=== PATIENT | female | born 1950 | race Caucasian/White ===

== ENCOUNTER 2016-07-29 14:23 | Inpatient (IN) | payer BC, OTHER ==
[~2016-07-29] VITALS: Ht 165.1 cm; Wt 55.7 kg
[2016-07-29] VITALS (8 sets, daily range): BP systolic 104–138; BP diastolic 58–102; PULSE 116–129; RESP 15–22; TEMP 97.6–98; O2SAT 88–98
--- NOTE | 2016-07-29 14:39 | PD ---
HPI Chief Complaint: Fall Time Seen by Provider: 14:31 Travel History International Travel<30 days: No Contact w/Intl Traveler<30days: No Traveled to known affect area: No History of Present Illness HPI This is a 66-year-old female with a history of cancer who presents to the emergency department having been moved by 2 friends when they felt a pop in her right leg and she sustained severe pain, constant, worse with moving with no associated numbness or weakness. Patient denies any other injuries. Patient was recently diagnosed with lung cancer that had spread to her bone and brain 3 weeks ago. She has an appointment with both Dr. Weber and Dr. Tran but she' s not met with them yet. She is not on any oxygen at home. [facility] Past Medical History Cardiovascular Problems: Yes Social History Tobacco Use: Yes Allergies-Medications (Allergen,Severity, Reaction): Coded Allergies: Sulfa (Verified Allergy, Unknown, 07/29/16) Reported Meds & Prescriptions Reported Meds & Active Scripts Active Reported Albuterol Neb (Albuterol Sulfate) 2.5 Mg/3 Ml Neb 2.5 Mg NEB Prednisone (21) 10 mg tab Dose Pack (Prednisone) 10 Mg Pack 10 Mg PO DIRECTED Potassium Chloride ER (Potassium Chloride) 10 Meq Cap 10 Meq PO BID Megestrol (Megestrol Acetate) 40 Mg Tab 40 Mg PO QID Phenergan (Promethazine HCl) 25 Mg Tab 25 Mg PO QID Levofloxacin 500 Mg Tab 500 Mg PO DAILY Hydromorphone (Hydromorphone HCl) 4 Mg Tab 4 Mg PO Q4H PRN Furosemide 20 Mg Tab 20 Mg PO DAILY Review of Systems Except as stated in HPI: all other systems reviewed are Neg Physical Exam Narrative GENERAL: Cachectic SKIN: Dry with skin tenting HEAD: Atraumatic. Normocephalic. EYES: Pupils equal and round. No injection or drainage. ENT: Dry mucous membranes NECK: Trachea midline. CARDIOVASCULAR: Tachycardic. No murmur appreciated. 2+ bilateral DP pulses with normal capillary refill. RESPIRATORY: Coarse breath sounds bilaterally with some expiratory wheezing. Tachypneic with increased work of breathing. GASTROINTESTINAL: Abdomen soft, non-tender, nondistended. MUSCULOSKELETAL: Gross deformity of the right lower extremity with deformity of the femur immediately distal to the hip NEUROLOGICAL: Awake and alert. No obvious cranial nerve deficits. Moving all extremities. Data Data Last Documented VS Vital Signs Date Time Temp Pulse Resp B/P Pulse Ox O2 Delivery O2 Flow Rate FiO2 07/29/16 16:58 98.0 119 16 116/62 98 Nasal Cannula 4 Orders Complete Blood Count With Diff (07/29/16 14:35) Comprehensive Metabolic Panel (07/29/16 14:35) B-Type Natriuretic Peptide (07/29/16 14:35) Act Partial Throm Time (Ptt) (07/29/16 14:35) Prothrombin Time / Inr (Pt) (07/29/16 14:35) Troponin I (07/29/16 14:35) Iv Access Insert/Monitor (07/29/16 14:35) Ecg Monitoring (07/29/16 14:35) Oximetry (07/29/16 14:35) Oxygen Administration (07/29/16 14:35) Chest, Single Ap (07/29/16 14:35) Sodium Chloride 0.9% Flush (Ns Flush) (07/29/16 14:45) Albuterol-Ipratropium Neb (Duoneb Neb) (07/29/16 14:45) Femur (Ap & Lat/2vws) (07/29/16 ) Hip, Uni(Ap&Lat) Wo Ap Pelvis (07/29/16 ) Hydromorphone Pf Inj (Dilaudid Pf Inj) (07/29/16 14:45) Arterial Blood Gas (Abg) (07/29/16 ) Consult Orthopedic (07/29/16 ) Traction (07/29/16 16:10) Methylprednisolone So Succ Inj (Solumedr (07/29/16 16:15) Blood Culture (07/29/16 16:19) Cefepime Inj (Maxipime Inj) (07/29/16 16:30) Azithromycin Inj (Zithromax Inj) (07/29/16 16:30) Diet Regular Basic (07/29/16 Dinner) Sodium Chlorid 0.9% 500 Ml Inj (Ns 500 M (07/29/16 16:30) Ct Thorax/ Chest Wo Iv Contras (07/29/16 ) Admit Order (Ed Use Only) (07/29/16 17:00) Labs Laboratory Tests Test 07/29/16 07/29/16 14:55 16:15 White Blood Count 11.1 TH/MM3 Red Blood Count 4.15 MIL/MM3 Hemoglobin 12.7 GM/DL Hematocrit 38.9 % Mean Corpuscular Volume 93.6 FL Mean Corpuscular Hemoglobin 30.6 PG Mean Corpuscular Hemoglobin 32.7 % Concent Red Cell Distribution Width 17.9 % Platelet Count 206 TH/MM3 Mean Platelet Volume 10.1 FL Neutrophils (%) (Auto) 89.0 % Lymphocytes (%) (Auto) 5.9 % Monocytes (%) (Auto) 4.7 % Eosinophils (%) (Auto) 0.2 % Basophils (%) (Auto) 0.2 % Neutrophils # (Auto) 9.9 TH/MM3 Lymphocytes # (Auto) 0.6 TH/MM3 Monocytes # (Auto) 0.5 TH/MM3 Eosinophils # (Auto) 0.0 TH/MM3 Basophils # (Auto) 0.0 TH/MM3 CBC Comment AUTO DIFF Differential Total Cells 100 Counted Neutrophils % (Manual) 66 % Band Neutrophils % 17 % Lymphocytes % 5 % Monocytes % 8 % Neutrophils # (Manual) 9.7 TH/MM3 Metamyelocytes 3 % Myelocytes 1 % Differential Comment FINAL DIFF MANUAL Toxic Vacuolation PRESENT Platelet Estimate NORMAL Platelet Morphology Comment NORMAL Sodium Level 140 MEQ/L Potassium Level 5.3 MEQ/L Chloride Level 104 MEQ/L Carbon Dioxide Level 23.4 MEQ/L Anion Gap 13 MEQ/L Blood Urea Nitrogen 48 MG/DL Creatinine 1.77 MG/DL Estimat Glomerular Filtration 29 ML/MIN Rate Random Glucose 122 MG/DL Calcium Level 11.0 MG/DL Total Bilirubin 0.5 MG/DL Aspartate Amino Transf 45 U/L (AST/SGOT) Alanine Aminotransferase 17 U/L (ALT/SGPT) Alkaline Phosphatase 132 U/L Troponin I LESS THAN 0.02 NG/ML B-Type Natriuretic Peptide 102 PG/ML Total Protein 8.0 GM/DL Albumin 3.1 GM/DL Prothrombin Time 14.4 SEC Prothromb Time International 1.3 RATIO Ratio Activated Partial 25.2 SEC Thromboplast Time MDM Medical Decision Making Medical Screen Exam Complete: Yes Emergency Medical Condition: Yes Interpretation(s) Mild leukocytosis with left shift and 17% bandemia Mild hyperkalemia Creatinine is 1.7 BNP is indeterminate Troponin is normal Calcium is 11 ABG: Mild metabolic acidosis X-ray: Proximal shaft femur fracture Chest x-ray: Left basilar airspace disease with small left effusion Differential Diagnosis Pulmonary embolism, pneumonia, lung cancer, pleural effusion Narrative Course This is a 66-year-old female who was recently diagnosed with metastatic cancer. She's not yet had oncology follow-up. Today she came in to the emergency department with severe pain in her right lower extremity. X-rays obtained and she has a mid shaft femur fracture. Patient was tachycardic and hypoxic on arrival. Labs are obtained which demonstrate a bandemia and patient has evidence of airspace disease in the left lower lung. She was covered for healthcare acquired pneumonia with cefepime and azithromycin and cultures were obtained. She was given IV hydration. I spoke to Dr. Soria regarding the patient's fracture. Given her creatinine she's not a candidate for a CT pulmonary angiogram and VQ scan would likely be of poor quality in this patient with lung cancer. Patient was admitted to the hospitalist service for further management. Physician Communication Physician Communication Discussed with Dr. Soria and Dr. Mccarty Diagnosis Primary Impression: Femoral shaft fracture Qualified Code: S72.391A - Other closed fracture of shaft of right femur, initial encounter Admitting Information Admitting Physician Requests: Admit Renita Antoine MD Jul 29, 2016 14:39
[2016-07-29] MEDS ORDERED: LEVO500T3 PO (14:44)
[2016-07-29] MEDS ORDERED: MEGE40TA PO (14:44)
[2016-07-29] MEDS ORDERED: HYDR4TAB PO (14:44)
[2016-07-29] MEDS ORDERED: PROM25TA5 PO (14:44)
[2016-07-29] MEDS ORDERED: FURO20TA PO (14:44)
[2016-07-29] MEDS ORDERED: POTA10CA PO (14:44)
[2016-07-29] MEDS ORDERED: SODIUM CHLORIDE 0.9% FLUSH 5 ML FLUSH IVF PRN ×2 (14:45→17:30)
[2016-07-29] MEDS ORDERED: HYDROmorphone HCL PF 1 MG/ML VIAL IV PUSH ONE (14:45)
[2016-07-29] MEDS ORDERED: PRED10PA PO (14:46)
[2016-07-29] MEDS ORDERED: ALBU0.08 NEB (14:46)
[2016-07-29] MEDS: RESP: ALBUTEROL 2.5 MG/IPRATROPIUM 0.5 MG NEB (SCH) INH ×2 (15:00→16:12)
[2016-07-29 15:27] LABS: AUTOMATED NEUTROPHIL # 9.9 TH/MM3 (1.8-7.7); BASOPHIL % 0.2 % (0.0-2.0); EOSINOPHIL % 0.2 % (0.0-4.0); HEMATOCRIT 38.9 % (35.0-46.0); HEMO FLAGS AUTO DIFF; LYMPH % 5.9 % (9.0-44.0); LYMPHOCYTE # 0.6 TH/MM3 (1.0-4.8); MEAN CELL VOLUME 93.6 FL (80.0-100.0); MEAN CORPUSCULAR HEMOGLOBIN 30.6 PG (27.0-34.0); MEAN CORPUSCULAR HGB CONC 32.7 % (32.0-36.0); MONO % 4.7 % (0.0-8.0); PLATELET COUNT 206 TH/MM3 (150-450); RED BLOOD COUNT 4.15 MIL/MM3 (4.00-5.30); RED CELL DISTRIBUTION WIDTH 17.9 % (11.6-17.2); WHITE BLOOD COUNT 11.1 TH/MM3 (4.0-11.0)
[2016-07-29 15:41] LABS: ALKALINE PHOSPHATASE 132 U/L (45-117); TOTAL BILIRUBIN ADULT 0.5 MG/DL (0.2-1.0)
[2016-07-29 15:48] LABS: ALT (GPT) 17 U/L (10-53); ANION GAP 13 MEQ/L (5-15); AST (GOT) 45 U/L (15-37); BICARBONATE 23.4 MEQ/L (21.0-32.0); BLOOD UREA NITROGEN 48 MG/DL (7-18); CHLORIDE 104 MEQ/L (98-107); GLOMERULAR FILTRATION RATE 29 ML/MIN (>89); SODIUM (NA) 140 MEQ/L (136-145)
[2016-07-29 15:49] LABS: POTASSIUM 5.3 MEQ/L (3.5-5.1)
[2016-07-29 15:59] LABS: BANDS 17 % (0-6); METAMYELOCYTES 3 % (0-1); MYELOCYTES 1 % (0-0); NEUTROPHIL # MANUAL DIFF 9.7 TH/MM3 (1.8-7.7); POLYS (SEG NEUTROPHILS) 66 % (16-70); WBC DIFF SAMPLE 100
[2016-07-29 16:00] LABS: PLATELET ESTIMATE SMEAR NORMAL (NORMAL); PLATELET MORPHOLOGY NORMAL (NORMAL); SCAN/DIFF FINAL DIFF MANUAL; TOXIC VACUOLATION PRESENT (NONE SEEN)
[2016-07-29] MEDS ORDERED: methylPREDNISolone SOD SUCC 125 MG/2 ML VIAL IV PUSH ONE (16:15)
[2016-07-29] MEDS ORDERED: AZITHROMYCIN INJ 500 MG in SODIUM CHLOR 0.9% 250 ML INJ 250 ML IV ONE (16:30)
[2016-07-29] MEDS ORDERED: CEFEPIME INJ 2,000 MG in SODIUM CHLORIDE 0.9% INJ 100 ML IV ONE (16:30)
[2016-07-29] MEDS ORDERED: SODIUM CHLORID 0.9% 500 ML INJ 500 ML IV ONE (16:30)
--- NOTE | 2016-07-29 16:30 | RADRPT ---
EXAM DATE/TIME: 07/29/2016 15:32 [facility] COMPARISON: No previous studies available for comparison. INDICATIONS : Shortness of breath. MEDICAL HISTORY : None. SURGICAL HISTORY : None. ENCOUNTER: Initial ACUITY: 1 day PAIN SCORE: 0/10 LOCATION: Bilateral chest FINDINGS: A single view of the chest demonstrates mild cardiomegaly. Left basilar consolidation and small left effusion. Minimal patchy airspace disease right lung. [id number] in superior vena cava. Atheroscle rotic and tortuous aorta. Multiple compression deformities in the thoracic spine.. CONCLUSION: 1. Left basilar airspace disease and small left effusion. Cardiomegaly. Rangel Haji MD on July 29, 2016 at 16:27 Board Certified Radiologist. This report was verified electronically.
--- NOTE | 2016-07-29 16:37 | RADRPT ---
EXAM DATE/TIME: 07/29/2016 15:24 [facility] COMPARISON: No previous studies available for comparison. INDICATIONS : Pain after fall. MEDICAL HISTORY : None. SURGICAL HISTORY : None. ENCOUNTER: Initial ACUITY: 1 day PAIN SCORE: 10/10 LOCATION: Right femur. FINDINGS: A two view examination of the right hip was performed. There is a fracture through the proximal shaft of the right femur with apex lateral angulation. This could represent a pathologic fracture. Questio nable lucency noted around the fracture site. Bone scan may be helpful to assess for other lesions de pending on intraoperative findings. CONCLUSION: Fracture proximal shaft right femur with apex lateral angulation. Questionable pathologic fracture. B one scan could be performed for further evaluation. Rangel Haji MD on July 29, 2016 at 16:32 Board Certified Radiologist. This report was verified electronically.
[2016-07-29 16:42] LABS: APTT (PATIENT) 25.2 SEC (24.3-30.1); INTERNATIONAL NORMALIZED RATIO 1.3 RATIO; PROTHROMBIN TIME - PATIENT 14.4 SEC (9.8-11.6)
[2016-07-29] MEDS: SODIUM CHLOR 0.9% 1000 ML INJ 1,000 ML IV SCH (17:25)
[2016-07-29] MEDS ORDERED: ACETAMINOPHEN/HYDROcodone 325 MG/5 MG TAB PO PRN ×2 (17:30)
[2016-07-29] MEDS ORDERED: ONDANSETRON HCL 4 MG/2 ML VIAL IVP PRN (17:30)
[2016-07-29] MEDS ORDERED: ACETAMINOPHEN 325 MG TAB PO PRN (17:30)
[2016-07-29 17:33] LABS: BLOOD GAS BASE EXCESS -4.9 mmol/L (-2-2); BLOOD GAS CARBOXYHEMOGLOBIN 2.2 % (0-4); BLOOD GAS HCO3 20 mmol/L (22-26); BLOOD GAS METHEMOGLOBIN 1.4 % (0-2); BLOOD GAS O2 HGB SATURATION 93 % (90-100); BLOOD GAS PCO2 40 mmHg (38-42); BLOOD GAS PO2 89 mmHG (61-120); BLOOD GAS TOTAL HGB 9.9 G/DL (12.0-16.0); TEMP CORR TO 98.6
[2016-07-29 17:34] LABS: CRITICAL VALUE NO; DRAW SITE RT RADIAL; LITER FLOW 4 L/M; NUMBER OF ARTERIAL PUNCTURES 1; OXYGEN DEVICE NASAL CANNULA; STAT YES; ULNAR PULSE PRESENT
--- NOTE | 2016-07-29 17:37 | RADRPT ---
EXAM DATE/TIME: 07/29/2016 15:25 [facility] COMPARISON: No previous studies available for comparison. INDICATIONS : Pain after fall. MEDICAL HISTORY : None. SURGICAL HISTORY : None. ENCOUNTER: Initial ACUITY: 1 day PAIN SCORE: 10/10 LOCATION: Right femur. FINDINGS: Two view examination of the right femur demonstrates fracture proximal shaft with lateral angulation. There does appear to be some underlying bony lytic changes characteristic of a pathologic fracture.. CONCLUSION: 1. Pathologic fracture of proximal humeral shaft with lateral angulation. Rangel Haji MD on July 29, 2016 at 17:34 Board Certified Radiologist. This report was verified electronically.
[2016-07-29] MEDS ORDERED: RESP: ALBUTEROL 1.25 MG/3 ML NEB (PRN) NEB (17:45)
--- NOTE | 2016-07-29 17:55 | HHI.HP ---
[facility] Service [facility] Primary Care Physician Ana Botello Admission Diagnosis hypoxia, femur fracture Diagnoses: Chief Complaint: Right leg pain Travel History International Travel<30 Days: No Contact w/Intl Traveler <30 Da: No Traveled to Known Affected Are: No History of Present Illness 66-year-old female with a past medical history of recently diagnosed lung cancer who presented with acute right leg pain today. The patient is seen with her friend/caregiver's at bedside. The patient is very hard of hearing and extremely hoarse, cannot speak much to give a lot of history. She is oriented to person, states it is June 2016. Reportedly her friends were helping her get back in bed today, she turned, heard a pop, and had immediate severe pain in her right thigh with inability to bear weight. Orthopedics was consulted from the ED for right femur fracture. She was recently diagnosed with bronchitis 2 days ago at an ED in the [place]. She has been having cough with productive yellow sputum. She is prescribed Levaquin and steroid taper pack. She denies any chest pain or shortness of breath at this time. She has been having some dizziness, lightheadedness, nausea, vomiting. She is recently diagnosed with lung cancer. She is seen radiation oncology, Dr. Tran, planning to start on radiation on Sunday. She is also planning to see her medical oncologist for the first time, Dr. Zhu, on Sunday. Review of Systems Other 10 point review of systems performed and was negative except as stated in history of present illness Past Family Social History Past Medical History Lung cancer Past Surgical History Right chest port placement Reported Medications Albuterol Neb (Albuterol Sulfate) 2.5 Mg/3 Ml Neb 2.5 Mg NEB Prednisone (21) 10 mg tab Dose Pack (Prednisone) 10 Mg Pack 10 Mg PO DIRECTED Potassium Chloride ER (Potassium Chloride) 10 Meq Cap 10 Meq PO BID Megestrol (Megestrol Acetate) 40 Mg Tab 40 Mg PO QID Phenergan (Promethazine HCl) 25 Mg Tab 25 Mg PO QID Levofloxacin 500 Mg Tab 500 Mg PO DAILY Hydromorphone (Hydromorphone HCl) 4 Mg Tab 4 Mg PO Q4H PRN Furosemide 20 Mg Tab 20 Mg PO DAILY Allergies: Coded Allergies: Sulfa (Verified Allergy, Unknown, 07/29/16) Active Ordered Medications Current Medications Medications (Trade) Dose Ordered Sig/Kenia Route Start Time Stop Time Status Last Admin IV Flush 2 ml 2 ml UNSCH PRN IVF 07/29/16 14:45 (NS 1000 ml Inj) 1,000 ml @ 75 mls/hr [id number] IV 07/29/16 17:25 (NS Flush) 2 ml UNSCH PRN IVF 07/29/16 17:30 (NS Flush) 2 ml BID IVF 07/29/16 21:00 ([place] 5-325 Mg) 1 tab Q4H PRN PO 07/29/16 17:30 ([place] 5-325 Mg) 2 tab Q4H PRN PO 07/29/16 17:30 (Morphine Inj) 5 mg Q2H PRN IV PUSH 07/29/16 17:30 (Zofran Inj) 4 mg Q6H PRN IVP 07/29/16 17:30 (Tylenol) 650 mg Q4H PRN PO 07/29/16 17:30 (Colace) 100 mg BID PO 07/29/16 21:00 Magnesium Hydroxide 30 ml 30 ml Q6H PRN PO 07/29/16 17:30 Ceftriaxone Sodium 1000 mg/ Sodium Chloride 100 ml @ 200 mls/hr DAILY@2000 IV 07/29/16 18:00 Azithromycin 500 mg/Sodium Chloride 250 ml @ 250 mls/hr DAILY@18 IV 07/29/16 19:00 (Heparin-D5W Inj) 250 ml @ 0 mls/hr TITRATE IV 07/29/16 18:00 Family History Father had cancer Social History Former tobacco use Denies alcohol use No relatives, relies on friends to get care Physical Exam Vital Signs Vital Signs Date Time Temp Pulse Resp B/P Pulse Ox O2 Delivery O2 Flow Rate FiO2 07/29/16 17:03 Nasal Cannula 4 07/29/16 16:58 98.0 119 16 116/62 98 Nasal Cannula 4 07/29/16 16:13 97 Nasal Cannula 3.00 07/29/16 15:03 128 20 114/65 98 Nasal Cannula 4 07/29/16 15:01 98 Nasal Cannula 4 07/29/16 14:36 134 22 94 Nasal Cannula 2 07/29/16 14:36 94 Nasal Cannula 4 07/29/16 14:36 94 Nasal Cannula 2 07/29/16 14:33 97.6 129 22 138/102 88 Physical Exam GENERAL: Well-developed cachectic. In [id number] acute distress. Hard of hearing and hoarse voice. SKIN: Warm and dry. No lesions noted. HEENT: Normocephalic. Pupils equal and round. Mucous membranes pink and moist. JVD noted. CARDIOVASCULAR: Tachycardic rate and regular rhythm. No murmur appreciated. RESPIRATORY: Mild use of accessory muscles. Coarse basilar crackles with occasional wheezing. GASTROINTESTINAL: Abdomen soft, non-tender, nondistended. Bowel sounds x4. MUSCULOSKELETAL: Right thigh with obvious deformity, right lower leg shortened and internally rotated. Trace edema NEUROLOGICAL: Awake and alert, but appears sleepy. No focal neurological deficits. Moves upper and lower extremities spontaneously. Normal speech. PSYCHIATRIC: Appropriate mood and affect; insight and judgment fair to normal. Laboratory Laboratory Tests Test 07/29/16 07/29/16 07/29/16 14:55 16:15 17:22 White Blood Count 11.1 Red Blood Count 4.15 Hemoglobin 12.7 Hematocrit 38.9 Mean Corpuscular Volume 93.6 Mean Corpuscular Hemoglobin 30.6 Mean Corpuscular Hemoglobin 32.7 Concent Red Cell Distribution Width 17.9 Platelet Count 206 Mean Platelet Volume 10.1 Neutrophils (%) (Auto) 89.0 Lymphocytes (%) (Auto) 5.9 Monocytes (%) (Auto) 4.7 Eosinophils (%) (Auto) 0.2 Basophils (%) (Auto) 0.2 Neutrophils # (Auto) 9.9 Lymphocytes # (Auto) 0.6 Monocytes # (Auto) 0.5 Eosinophils # (Auto) 0.0 Basophils # (Auto) 0.0 CBC Comment AUTO DIFF Differential Total Cells 100 Counted Neutrophils % (Manual) 66 Band Neutrophils % 17 Lymphocytes % 5 Monocytes % 8 Neutrophils # (Manual) 9.7 Metamyelocytes 3 Myelocytes 1 Differential Comment FINAL DIFF MANUAL Toxic Vacuolation PRESENT Platelet Estimate NORMAL Platelet Morphology Comment NORMAL Sodium Level 140 Potassium Level 5.3 Chloride Level 104 Carbon Dioxide Level 23.4 Anion Gap 13 Blood Urea Nitrogen 48 Creatinine 1.77 Estimat Glomerular Filtration 29 Rate Random Glucose 122 Calcium Level 11.0 Total Bilirubin 0.5 Aspartate Amino Transf 45 (AST/SGOT) Alanine Aminotransferase 17 (ALT/SGPT) Alkaline Phosphatase 132 Troponin I LESS THAN 0.02 B-Type Natriuretic Peptide 102 Total Protein 8.0 Albumin 3.1 Prothrombin Time 14.4 Prothromb Time International 1.3 Ratio Activated Partial 25.2 Thromboplast Time Blood Gas Puncture Site RT RADIAL Blood Gas Patient Temperature 98.6 Blood Gas HCO3 20 Blood Gas Base Excess -4.9 Blood Gas Oxygen Saturation 93 Arterial Blood pH 7.32 Arterial Blood Partial 40 Pressure CO2 Arterial Blood Partial 89 Pressure O2 Arterial Blood Oxygen Content 13.0 Arterial Blood 2.2 Carboxyhemoglobin Arterial Blood Methemoglobin 1.4 Blood Gas Hemoglobin 9.9 Oxygen Delivery Device NASAL CANNULA Blood Gas Liter Flow 4 Date/Time Procedure Status Source Growth 07/29/16 16:35 Aerobic Blood Culture Received Blood Peripheral Pending 07/29/16 16:35 Anaerobic Blood Culture Received Blood Peripheral Pending Result Diagram: 07/29/16 1455 07/29/16 1455 Imaging Last Impressions Chest X-Ray 07/29/16 1435 Signed Impressions: Service Date/Time: Friday, July 29, 2016 15:32 - CONCLUSION: 1. Left basilar airspace disease and small left effusion. Cardiomegaly. Rangel Haji MD Hip X-Ray 07/29/16 0000 Signed Impressions: Service Date/Time: Friday, July 29, 2016 15:24 - CONCLUSION: Fracture proximal shaft right femur with apex lateral angulation. Questionable pathologic fracture. Bone scan could be performed for further evaluation. Rangel Haji MD Femur X-Ray 07/29/16 0000 Signed Impressions: Service Date/Time: Friday, July 29, 2016 15:25 - CONCLUSION: 1. Pathologic fracture of proximal humeral shaft with lateral angulation. Rangel Haji MD Assessment and Plan Assessment and Plan 66-year-old female with a past medical history of recently diagnosed lung cancer who presented with acute right leg pain Right upper mid shaft femur fracture: Hip and femur x-rays personally reviewed, fracture possibly pathologic. Orthopedics was consulted from the ED. pt wants to proceed with surgery , Higher risk for surgery with respiratory status as below, would recommend pulmonary clearance prior to surgery. Pain control with oral and intravenous narcotics as needed. Acute respiratory failure , hypoxia r/o pneumonia vs Embolism : With history of cancer and long bone fracture she is at high risk for embolic is him, Oxygen saturation 90s on 4 L O2. ABG reviewed. Chest x-ray shows left basilar airspace disease and small left effusion. Chest CT ordered in the ED pending. Was on oral Levaquin 2 days as outpatient, continue IV antibiotics with azithromycin and ceftriaxone. Scheduled as needed nebs. Supplemental oxygen as needed. Consult pulmonology. Solu-Medrol iv Possible PE: EKG reviewed and shows SVT. Hypoxia. Patient is high risk due to malignancy and femur fracture. Unable to perform CTA with elevated creatinine. Dr. Mccarty d/w Dr. Zhu, recommended checking VQ scan, and would only fully anticoagulate for high probability VQ scan, and consult pulmonary to assist lung function prior to clear for surgery Acute kidney injury possibly on underlying CKD, : Creatinine 1.77, no previous labs for comparison. IVF and follow-up BMP. Lung cancer: Consult patient's oncologist, Dr. Zhu. Disposition: close monitoring in ICU for now. Written by Xander Wolfe, acting as scribe for Dr. Mccarty on 07/29/16 at 17:32. Discussed Condition With Patient with friends at bedside, ED RN, Dr. Antoine, Dr. Audra Wolfe,Xander MORRIS Jul 29, 2016 17:55 Juliana Mccarty MD Jul 29, 2016 18:15
[2016-07-29] MEDS: cefTRIAXone INJ 1,000 MG in SODIUM CHLORIDE 0.9% INJ 100 ML IV SCH ×2 (18:00→20:35)
[2016-07-29] MEDS ORDERED: HEPARIN-D5W INJ 250 ML IV SCH (18:00)
[2016-07-29] MEDS: AZITHROMYCIN INJ 500 MG in SODIUM CHLOR 0.9% 250 ML INJ 250 ML IV SCH (18:03)
--- NOTE | 2016-07-29 18:18 | RADRPT ---
EXAM DATE/TIME: 07/29/2016 17:34 [facility] COMPARISON: No previous studies available for comparison. INDICATIONS : Shortness of breath; possible mass. RADIATION DOSE: 8.44 CTDIvol (mGy) MEDICAL HISTORY : Carcinoma, lung. Hypertension. Cardiovascular disease SURGICAL HISTORY : Appendectomy. port in right chest ENCOUNTER: Initial ACUITY: 1 day PAIN SCALE: 6/10 LOCATION: chest TECHNIQUE: Volumetric scanning of the chest was performed. Using automated exposure control and adjustment of t he mA and/or kV according to patient size, radiation dose was kept as low as reasonably achievable to obtain optimal diagnostic quality images. FINDINGS: There is dense consolidation at the left lung base with air bronchograms most characteristic of a pne umonia or aspiration. There is also some subsegmental airspace disease in the lingula, right middle l obe and right lower lobe. Focal consolidation also present in anterior segment left upper lobe. There is some mild mediastinal adenopathy with a subcarinal node measuring up to 1.7cm. There is a small left-sided pleural effusion. No significant right effusion. Pleural calcifications a re present on the right. Small pericardial effusion. No acute findings in the upper abdomen. CONCLUSION: 1. Multifocal airspace consolidation the lungs most notable in the left lower lobe and anterior segme nt left upper lobe loss and subsegmental airspace disease in the other lobes of the lung. There is an associated small left effusion and small pericardial effusion. Findings are most characteristic of p neumonia or aspiration. There is also mild emphysema and mild mediastinal adenopathy. Right Infuse-a- Port tip in superior vena cava. 2. Moderate compression deformity in the lower thoracic spine, probably old. Rangel Haji MD on July 29, 2016 at 18:12 Board Certified Radiologist. This report was verified electronically.
--- NOTE | 2016-07-29 20:13 | RADRPT ---
EXAM DATE/TIME: 07/29/2016 19:40 [facility] COMPARISON: No previous studies available for comparison. INDICATIONS : Hypoxia and dyspnea. DOSE: 8.5 mCi Tc99m MAA IV 1.2 mCi Tc99m DTPA aerosol MEDICAL HISTORY : Hypertension. SURGICAL HISTORY : Appendectomy. ENCOUNTER: Initial ACUITY: 2 days PAIN SCALE: 0/10 LOCATION: chest TECHNIQUE: Following five minutes of tidal breathing of DTPA aerosol, planar images of the lungs were performed in eight projections. The patient was then injected with MAA, and eight-view perfusion scan was perf ormed. FINDINGS: There is a heterogeneous pattern of aerosol delivery to the periphery of both lungs. Left hemidiaphra gm is elevated. The perfusion lung scan demonstrates a homogenous pattern of uptake in both lungs except for elevatio n of left hemidiaphragm. No segmental or subsegmental defects are seen. CONCLUSION: 1. Low probability for pulmonary bolus. Rangel Haji MD on July 29, 2016 at 20:10 Board Certified Radiologist. This report was verified electronically.
[2016-07-29] MEDS: RESP: ALBUTEROL 2.5 MG/IPRATROPIUM 0.5 MG NEB (SCH) NEB (20:52)
[2016-07-29] MEDS ORDERED: PAMIDRONATE INJ 60 MG in SODIUM CHLORID 0.9% 500 ML INJ 500 ML IV ONE (21:00)
[2016-07-29] MEDS: SODIUM CHLORIDE 0.9% FLUSH 5 ML FLUSH IVF SCH (21:00)
[2016-07-29] MEDS: MORPHINE SULFATE 8 MG/ML INJ IV PUSH PRN (21:01)
--- NOTE | 2016-07-29 21:31 | MB ---
cc: FLOYD CHAVARRIA M.D. DATE OF CONSULTATION 07/29/16 REASON FOR CONSULTATION Consult requested by Dr. Mccarty for evaluation of lung cancer. HISTORY OF PRESENT ILLNESS Karo Hensley is a 66-year unfortunate white female. I saw her for the first time about a month ago when she was admitted to [facility] with swelling of both lower legs. She was found to have bilateral lower legs DVT and underwent IVC filter placement. The CT of the chest, abdomen and pelvis showed left upper lobe lung mass with left supraclavicular lymphadenopathy and lesion in the liver highly suspicious for primary lung cancer. She also had a CAT scan of the brain which showed two masses. The patient underwent biopsy of the left supraclavicular mass and the pathology report showed non-small cell lung cancer adenocarcinoma. The patient was scheduled to start radiation therapy with Dr. Tran sometime next week. She was also scheduled to start chemotherapy. She was referred to Dr. Justin for the [id number]. The patient had a port put in on July 10. Due to the insurance, the patient was unable to come see us before the beginning of the next month. She stated that she had a problem with the insurance and she got the new temporary card just beginning of this month. She had an appointment with Dr. Tran next week Sunday for the radiation treatment. The patient went to [facility] two days ago complaining of shortness of breath. She had a CT angiogram of the chest which did not show any pulmonary embolism. However, it showed that she has worsening of the left pleural effusion and also worsening of the lung mass and mediastinal lymphadenopathy. The patient was given breathing treatment and she was discharged to home. The patient lives by herself. She has two friends who are her caregiver, noted a pop in her right leg today. They called paramedics. The paramedics brought her to [facility] emergency room instead of the [facility]. In the emergency room, the patient had a x-ray which showed pathological fracture of the proximal femoral shaft with angulation. There is underlying bony lytic changes noted as well. She has a CT of the chest which shows multifocal air space consolidation. The lungs most notable in the left lower lobe and anterior segment of the left upper lobe loss and sub segmental airspace disease. There is associated small left pleural effusion and small pericardial effusion. Findings are most consistent with pneumonia or aspiration. There is also mild emphysema and mild mediastinal lymphadenopathy noted. There is a moderate compression deformity noted in the lower thoracic space. The patient had a VQ scan which is low probability for pulmonary embolism. Orthopedic has been consulted. Await their input. The patient has hypoxia when she came into the emergency room. Her O2 saturation was 88%. She was placed on nasal cannula and her O2 saturation has improved to 94%. Her breathing has also improved according to the friends. The patient's appetite is poor. She is losing weight. I have been asked to see the patient for further evaluation. The patient just came back from VQ scan and result is low probability for PE. PAST MEDICAL HISTORY 1. COPD, 2. Chronic back pain 3. Hypercholesterolemia. 4. Recently diagnosed with DVT and had IVC filter. 5. She was also recently diagnosed with non-small cell lung cancer stage IV. PAST SURGICAL HISTORY 1. Appendectomy 2. Breast biopsy 3. Right supraclavicular lymph node biopsy 4. [id number] placement. ALLERGIES None. MEDICATIONS Please see EMR FAMILY HISTORY The patient does not have any siblings or any children. SOCIAL HISTORY The patient is single, never . She lives by herself. However, she has two friends who are her caregivers. The patient does not drink alcohol. She used to smoke cigarettes 1 1/2 packs a day for many years, quit about 10 years ago. PHYSICAL EXAMINATION GENERAL: A well-developed, cachectic-appearing white female in no apparent distress. VITAL SIGNS: Temperature 98, heart rate is 119, blood pressure 116/62. HEENT: Bitemporal wasting noted. EOMI, anicteric. Oral mucosa is very dry. NECK: Left supraclavicular lymphadenopathy noted. LUNGS: Decreased breath sounds with left-sided scattered wheezing. HEART: Tachycardia with no murmur. ABDOMEN: Soft, nontender. EXTREMITIES: No pedal edema. NEUROLOGIC: Awake, alert, oriented times threes SKIN: No significant lesions are noted. ASSESSMENT 1. Pathological fracture of the right femur. 2. Recently diagnosed non-small cell lung cancer adenocarcinoma stage IV with brain metastasis. The patient has not had any treatment as yet. 3. Recently diagnosed with acute occlusive DVT of the bilateral lower extremity about a month ago, is status post IVC filter placement. PLAN I have reviewed her available records and I had an extensive discussion With the patient and two of her friends at bedside regarding her condition. The patient has a pathological fracture of the right femur. She has known bone metastasis. She had a biopsy of the left supraclavicular lymph node recently at [facility] and shows non-small cell lung cancer adenocarcinoma. She also has brain metastasis. She has been evaluated by Dr. Tran, radiation oncologist, and plan was to start radiation therapy next week Sunday. She had a CAT scan of the chest which does not show large volume cancer. However, she could have aspiration pneumonia. She went to [facility] two days ago and she had a CT angiogram which was negative. She just had a VQ lung scan and that also showed low probability for PE. Her creatinine is elevated at 1.77 which is most likely due to her recent CT angiogram of the chest done two days ago. The patient will be hydrated. Her calcium is elevated at 11 which is due to the bone metastasis. We will give her Aredia for the hypercalcemia. Her prognosis is extremely poor. Orthopedics has been consulted and they will decide whether the patient is a candidate for surgery or not due to her pulmonary status. Dr. Mccarty had called me and we have discussed the case. The recommendation was made to obtain pulmonary consult to clear her for surgery if possible. I have discussed with the patient and her friends regarding best supportive care with hospice. However, the patient has adamantly declined hospice. She said that she is a fighter and she wants to have treatment before she gives up. Her friends also agreed with her. The patient cannot be discharged to home as she lives by herself. If the patient undergoes surgery then she will be discharged to rehab. I will discuss with Dr. Tran next week regarding the radiation to the brain. Her prognosis is extremely poor. They understand that the treatment is not curable but is only palliative. The patient is adamant about not going on Hospice and wants the treatment. Thank you for asking my opinion. MD THOMAS Leavitt/ /8:32 PM /9:03 PM ELICIA
[2016-07-29] MEDS: DOCUSATE SODIUM 100 MG CAP PO SCH (22:01)
[2016-07-29] MEDS: methylPREDNISolone SOD SUCC 40 MG/1 ML VIAL IV PUSH SCH (22:01)
[2016-07-30] VITALS (13 sets, daily range): BP systolic 113–131; BP diastolic 60–76; PULSE 109–120; RESP 16–32; TEMP 97.8–98.2; O2SAT 93–99
[2016-07-30] MEDS: MORPHINE SULFATE 8 MG/ML INJ IV PUSH PRN ×4 (01:13→20:39)
[2016-07-30] MEDS: methylPREDNISolone SOD SUCC 40 MG/1 ML VIAL IV PUSH SCH ×3 (05:06→20:40)
[2016-07-30] MEDS: AZITHROMYCIN INJ 500 MG in SODIUM CHLOR 0.9% 250 ML INJ 250 ML IV SCH (05:09)
[2016-07-30 05:28] LABS: HEMATOCRIT 28.9 % (35.0-46.0); MEAN CELL VOLUME 94.3 FL (80.0-100.0); MEAN CORPUSCULAR HEMOGLOBIN 30.3 PG (27.0-34.0); MEAN CORPUSCULAR HGB CONC 32.1 % (32.0-36.0); PLATELET COUNT 234 TH/MM3 (150-450); RED BLOOD COUNT 3.06 MIL/MM3 (4.00-5.30); RED CELL DISTRIBUTION WIDTH 17.5 % (11.6-17.2); REVIEW FLAG FINAL
[2016-07-30 05:47] LABS: ALKALINE PHOSPHATASE 102 U/L (45-117); ALT (GPT) 12 U/L (10-53); ANION GAP 10 MEQ/L (5-15); AST (GOT) 16 U/L (15-37); BICARBONATE 24.2 MEQ/L (21.0-32.0); BLOOD UREA NITROGEN 39 MG/DL (7-18); CHLORIDE 112 MEQ/L (98-107); GLOMERULAR FILTRATION RATE 53 ML/MIN (>89); POTASSIUM 3.9 MEQ/L (3.5-5.1); SODIUM (NA) 146 MEQ/L (136-145); TOTAL BILIRUBIN ADULT 0.3 MG/DL (0.2-1.0)
[2016-07-30] MEDS: SODIUM CHLOR 0.9% 1000 ML INJ 1,000 ML IV SCH ×3 (06:45→20:05)
[2016-07-30] MEDS: DOCUSATE SODIUM 100 MG CAP PO SCH ×2 (08:26→20:41)
[2016-07-30] MEDS: SODIUM CHLORIDE 0.9% FLUSH 5 ML FLUSH IVF SCH ×3 (08:26→21:00)
--- NOTE | 2016-07-30 08:46 | PD.ONC.PN ---
Subjective Subjective Remarks Afebrile overnight. Patient resting comfortably in ISC. She states her pain is controlled in her right leg with morphine. She is eager to see the orthopod and find out if she can have her leg surgically repaired. Objective Data Date Time Temp Pulse Resp B/P Pulse Ox O2 Delivery O2 Flow Rate FiO2 07/30/16 07:00 Nasal Cannula 4.00 07/30/16 06:00 110 07/30/16 05:12 16 07/30/16 04:00 98.0 119 24 119/62 93 07/30/16 04:00 116 07/30/16 02:00 120 07/30/16 00:00 96 Nasal Cannula 4.00 07/30/16 00:00 118 07/30/16 00:00 98.2 118 16 113/60 96 07/29/16 21:05 118 15 123/67 98 Aerosol Mask 07/29/16 20:54 97 Nasal Cannula 3.00 07/29/16 19:03 116 15 104/58 93 Nasal Cannula 3 07/29/16 17:03 Nasal Cannula 4 07/29/16 16:58 98.0 119 16 116/62 98 Nasal Cannula 4 07/29/16 16:13 97 Nasal Cannula 3.00 07/29/16 15:03 128 20 114/65 98 Nasal Cannula 4 07/29/16 15:01 98 Nasal Cannula 4 07/29/16 14:36 134 22 94 Nasal Cannula 2 07/29/16 14:36 94 Nasal Cannula 4 07/29/16 14:36 94 Nasal Cannula 2 07/29/16 14:33 97.6 129 22 138/102 88 07/30/16 07/30/16 07/30/16 07:00 15:00 23:00 Intake Total 2824 ml Output Total 1200 ml Balance 1624 ml Result Diagram: 07/30/16 0419 07/30/16 0419 Laboratory Results Laboratory Tests Test 07/29/16 07/29/16 07/29/16 07/29/16 14:55 16:15 17:22 22:25 White Blood Count 11.1 TH/MM3 Red Blood Count 4.15 MIL/MM3 Hemoglobin 12.7 GM/DL Hematocrit 38.9 % Mean Corpuscular Volume 93.6 FL Mean Corpuscular Hemoglobin 30.6 PG Mean Corpuscular Hemoglobin 32.7 % Concent Red Cell Distribution Width 17.9 % Platelet Count 206 TH/MM3 Mean Platelet Volume 10.1 FL Neutrophils (%) (Auto) 89.0 % Lymphocytes (%) (Auto) 5.9 % Monocytes (%) (Auto) 4.7 % Eosinophils (%) (Auto) 0.2 % Basophils (%) (Auto) 0.2 % Neutrophils # (Auto) 9.9 TH/MM3 Lymphocytes # (Auto) 0.6 TH/MM3 Monocytes # (Auto) 0.5 TH/MM3 Eosinophils # (Auto) 0.0 TH/MM3 Basophils # (Auto) 0.0 TH/MM3 CBC Comment AUTO DIFF Differential Total Cells 100 Counted Neutrophils % (Manual) 66 % Band Neutrophils % 17 % Lymphocytes % 5 % Monocytes % 8 % Neutrophils # (Manual) 9.7 TH/MM3 Metamyelocytes 3 % Myelocytes 1 % Differential Comment FINAL DIFF MANUAL Toxic Vacuolation PRESENT Platelet Estimate NORMAL Platelet Morphology Comment NORMAL Sodium Level 140 MEQ/L Potassium Level 5.3 MEQ/L Chloride Level 104 MEQ/L Carbon Dioxide Level 23.4 MEQ/L Anion Gap 13 MEQ/L Blood Urea Nitrogen 48 MG/DL Creatinine 1.77 MG/DL Estimat Glomerular Filtration 29 ML/MIN Rate Random Glucose 122 MG/DL Calcium Level 11.0 MG/DL Total Bilirubin 0.5 MG/DL Aspartate Amino Transf 45 U/L (AST/SGOT) Alanine Aminotransferase 17 U/L (ALT/SGPT) Alkaline Phosphatase 132 U/L Troponin I LESS THAN 0.02 NG/ML B-Type Natriuretic Peptide 102 PG/ML Total Protein 8.0 GM/DL Albumin 3.1 GM/DL Prothrombin Time 14.4 SEC Prothromb Time International 1.3 RATIO Ratio Activated Partial 25.2 SEC Thromboplast Time Blood Gas Puncture Site RT RADIAL Blood Gas Patient Temperature 98.6 Blood Gas HCO3 20 mmol/L Blood Gas Base Excess -4.9 mmol/L Blood Gas Oxygen Saturation 93 % Arterial Blood pH 7.32 Arterial Blood Partial 40 mmHg Pressure CO2 Arterial Blood Partial 89 mmHG Pressure O2 Arterial Blood Oxygen Content 13.0 Vol % Arterial Blood 2.2 % Carboxyhemoglobin Arterial Blood Methemoglobin 1.4 % Blood Gas Hemoglobin 9.9 G/DL Oxygen Delivery Device NASAL CANNULA Blood Gas Liter Flow 4 L/M Nasal Screen MRSA (PCR) NEGATIVE Test 07/30/16 04:19 White Blood Count 8.0 TH/MM3 Red Blood Count 3.06 MIL/MM3 Hemoglobin 9.3 GM/DL Hematocrit 28.9 % Mean Corpuscular Volume 94.3 FL Mean Corpuscular Hemoglobin 30.3 PG Mean Corpuscular Hemoglobin 32.1 % Concent Red Cell Distribution Width 17.5 % Platelet Count 234 TH/MM3 Mean Platelet Volume 9.9 FL Sodium Level 146 MEQ/L Potassium Level 3.9 MEQ/L Chloride Level 112 MEQ/L Carbon Dioxide Level 24.2 MEQ/L Anion Gap 10 MEQ/L Blood Urea Nitrogen 39 MG/DL Creatinine 1.05 MG/DL Estimat Glomerular Filtration 53 ML/MIN Rate Random Glucose 121 MG/DL Calcium Level 8.8 MG/DL Total Bilirubin 0.3 MG/DL Aspartate Amino Transf 16 U/L (AST/SGOT) Alanine Aminotransferase 12 U/L (ALT/SGPT) Alkaline Phosphatase 102 U/L Total Protein 6.1 GM/DL Albumin 2.3 GM/DL Culture Results Microbiology Date/Time Procedure Status Source Growth 07/29/16 16:30 Aerobic Blood Culture Received Blood Peripheral Pending 07/29/16 16:30 Anaerobic Blood Culture Received Blood Peripheral Pending 07/29/16 16:35 Aerobic Blood Culture Received Blood Peripheral Pending 07/29/16 16:35 Anaerobic Blood Culture Received Blood Peripheral Pending Imaging Studies Last 24 hours Impressions Chest X-Ray 07/29/16 1435 Signed Impressions: Service Date/Time: Friday, July 29, 2016 15:32 - CONCLUSION: 1. Left basilar airspace disease and small left effusion. Cardiomegaly. Rangel Haji MD Administered Medications Medications (Trade) Dose Ordered Sig/Kenia Route PRN Reason Start Time Stop Time Status Last Admin Dose Admin Sodium Chloride (NS 1000 ml Inj) 1,000 ml @ 75 mls/hr [id number] IV 07/29/16 17:25 07/29/16 17:25 IV Flush (NS Flush) 2 ml BID IVF 07/29/16 21:00 07/30/16 08:26 Morphine Sulfate (Morphine Inj) 5 mg Q2H PRN IV PUSH BREAKTHROUGH PAIN 07/29/16 17:30 07/30/16 05:07 Docusate Sodium 100 mg 100 mg BID PO 07/29/16 21:00 07/29/16 22:01 Ceftriaxone Sodium/Sodium Chloride (Rocephin Inj/NS Inj) 100 ml @ 200 mls/hr DAILY@1999 IV 07/29/16 18:00 07/29/16 20:35 Methylprednisolone Sodium Succinate (SoluMEDROL INJ) 40 mg Q8HR IV PUSH 07/29/16 22:00 07/30/16 05:06 Objective Remarks GENERAL: Middle aged very frail female, sitting up in bed, right leg in splint. She appears comfortable and in nad. SKIN: Warm and dry. HEAD: Normocephalic. EYES: No injection or drainage. NECK: Supple, trachea midline. CARDIOVASCULAR: Regular rate and rhythm RESPIRATORY: Breath sounds equal bilaterally. No accessory muscle use. GASTROINTESTINAL: Abdomen soft, non-tender, nondistended. EXTREMITIES: No cyanosis NEUROLOGICAL: No obvious focal deficit. Awake, alert, and oriented x3. Assessment/Plan Problem List: (1) Femoral shaft fracture Status: Acute Plan: --this is a pathologic fracture --ortho has been consulted (2) Metastatic lung carcinoma Status: Acute Plan: 07/30/16: XRT to start Sunday. prognosis remains very poor. --Workup (done at [facility]) CT C/A/P showed left upper lobe lung mass with left SC LAD + liver lesion CT brain showed 2 masses pathology of supraclav. mass showed adenocarcinoma, NSCLC --XRT to start Sunday [place] [place]showed multifocal air space consolidation +small left pleural effusion and small pericardial effusion. (3) DVT, bilateral lower limbs Status: Acute Plan: --s/p IVC filter placement (4) Hypercalcemia of malignancy Status: Acute Plan: --given Aredia on 07/29/16 Assessment 66y/o with recently diagnosed metastatic NSCLC with brain mets, admitted with pathologic fracture to right femur. h/o COPD, Chronic back pain. DVT + IVC filter. Attending Statement confuse, may be due anesthesia meds. s/p ORIF right femur. d/w two step sons and friends. consult palliative care to assist. The exam, history, and the medical decision-making described in the above note were completed with the assistance of the mid-level provider. I reviewed and agree with the findings presented. I attest that I had a [id number] encounter with the patient on the same day, and personally performed and documented my assessment and findings in the medical record. Problem Qualifiers (1) Femoral shaft fracture: Qualified Code: S72.391A - Other closed fracture of shaft of right femur, initial encounter Mercedez Benitez Jul 30, 2016 08:46 Kendal Zhu MD Jul 30, 2016 18:00
[2016-07-30] MEDS: RESP: ALBUTEROL 2.5 MG/IPRATROPIUM 0.5 MG NEB (SCH) NEB ×3 (08:55→20:00)
[2016-07-30 10:57] LABS: BLOOD GAS BASE EXCESS -4.2 mmol/L (-2-2); BLOOD GAS CARBOXYHEMOGLOBIN 1.7 % (0-4); BLOOD GAS HCO3 20 mmol/L (22-26); BLOOD GAS METHEMOGLOBIN 0.8 % (0-2); BLOOD GAS O2 HGB SATURATION 91 % (90-100); BLOOD GAS OXYGEN CONTENT 11.7 Vol % (12.0-20.0); BLOOD GAS PCO2 33 mmHg (38-42); BLOOD GAS PO2 73 mmHg (61-120); CRITICAL VALUE NO; LITER FLOW 2 L/M; OXYGEN DEVICE NASAL CANNULA; TEMP CORR TO 98.6
[2016-07-30 10:58] LABS: DRAW SITE RT RADIAL; NUMBER OF ARTERIAL PUNCTURES 1; STAT NO; ULNAR PULSE PRESENT
--- NOTE | 2016-07-30 10:58 | MB ---
cc: MORRIS HOFFMAN M.D. DATE OF CONSULTATION: 07/30/2016 REASON FOR CONSULTATION Right femur fracture. HISTORY OF PRESENT ILLNESS The patient is a 66-year-old female who has a diagnosis of bilateral lower extremity DVT status post IVC filter and a new history of lung cancer. The patient apparently had not been yet treated for the lung cancer with chemotherapy. The patient has history of supraclavicular lymphadenopathy which was suspicious for metastasis. She has also had a CT scan showing masses within the brain. The patient had a biopsy showing that she did have metastatic supraclavicular mass from adenocarcinoma. The patient apparently did not start chemotherapy due to some insurance issues as she is being scheduled for radiation therapy. The patient says that she was just standing and noticed her leg gave out on her on the right side. She did not have any specific antecedent pain in the right femur. Recently this patient had gone to [facility] complaining of shortness of breath. She was having worsening pleural effusion. The patient was brought to [facility], after the injury to the right femur, she was found to have a pathologic fracture of the mid shaft of the right femur, significant displacement and angulation. The patient was admitted to the intensive care unit for medical management overnight with possible preparation for surgical management. The patient did just have a VQ scan done last night which showed low probability for pulmonary embolus. PAST MEDICAL HISTORY As above. She also has history of COPD, chronic back pain, hypercholesterolemia. PAST SURGICAL HISTORY Appendectomy, breast biopsy, [id number] placement. ALLERGIES No known drug allergies. MEDICATIONS See the chart. FAMILY HISTORY Noncontributory. SOCIAL HISTORY The patient is single, lives by herself. She does not drink alcohol. She smokes cigarettes, one and a half packs per day for many years. PHYSICAL EXAMINATION VITAL SIGNS: The patient's temperature is 98.0, pulse is 119, respirations 24, blood pressure 119/62. GENERAL: She is awake, alert and oriented x3. She has normal affect, insight and judgment. She is in mild distress due to pain about the right femur, somewhat thin. She does have a hoarse voice. Oropharynx is moist. NECK: Neck is supple. HEART: Regular rate and rhythm. LUNGS: Lungs had some occasional wheezing. ABDOMEN: Soft, nontender, nondistended. BACK: Shows no CVA tenderness. EXTREMITIES: Right leg shows significant deformity about the right femur with mild swelling. No wound was noted. She could move the toes well on the right foot. She has brisk capillary refill distally about the toes. Examination of the left knee showed no swelling or tenderness. LABORATORY DATA Laboratory studies shows white cell count of 11.1, hematocrit 38.9, platelets of 206, creatinine 1.77, glucose 122. X-RAYS Reported images reviewed shows the right femur has what appears to be a pathologic mid shaft fracture as the edges of the fracture site appear slightly lytic in nature. IMPRESSION 1. Recent diagnosis of metastatic lung cancer still pending initial chemotherapy treatment. 2. Recent history of bilateral lower extremity DVT status post IVC filter. 3. COPD. 4. Right pathologic midshaft femur fracture, displaced and angulated. DECISION MAKING This is a very highly complex situation for this patient and generally I do recommend surgical management for a displaced midshaft femur fracture as nonoperative management has extremely poor results and would require prolonged bedrest which could increase the chance of having pulmonary complications, worsening DVT, bed sores and/or other significant medical complications. Surgical management, however, is very risky in this patient as there is a high risk of the patient developing pulmonary complications from surgery such as prolonged intubation, further DVT, pulmonary embolus. She understands that surgery would not be undertaken to cure her of the cancer in the leg, surgery would be to place an intramedullary dora to stabilize the leg so she would be able to transfer out of bed. She would likely require radiation therapy about the right femur region if surgical management is to be undertaken. There are risks associated with surgery which are compounded by the pathologic nature of this. Such risks include injury to nerves, blood vessels, bleeding, infection, wound healing problems, DVT, pulmonary embolus, medical complications such as heart attack, stroke, . The patient understands she may not ultimately be able to return back to weightbearing even with surgical management since it is possible the fracture may not heal appropriately given the pathologic nature of this. At this point the patient wants to move forward with surgical management, however, we are still pending medical clearance. She is n.p.o. All questions have been answered. MD JOHN Iverson/JACKSON /9:55 AM /10:29 AM
--- NOTE | 2016-07-30 11:21 | HHI.PR ---
Subjective Remarks Patient laying in bed, she is comfortable, date is tolerable, nurse at the bedside She is afebrile, still having cough, I explained to her her high risk for surgery but she is still adamant to go for orthopedic surgery Yesterday I discussed over the phone with orthopedic Dr. nina and with the rn ccu Dr. Garcia as well as the oncologist We're awaiting on pulmonary appearance before going for surgery Patient fully aware of the high risk Objective Vitals Vital Signs Date Time Temp Pulse Resp B/P Pulse Ox O2 Delivery O2 Flow Rate FiO2 07/30/16 10:00 120 07/30/16 09:21 28 07/30/16 08:57 99 Nasal Cannula 2.00 07/30/16 08:00 97.9 115 27 126/71 97 07/30/16 08:00 115 07/30/16 07:00 Nasal Cannula 4.00 07/30/16 06:00 110 07/30/16 04:00 98.0 119 24 119/62 93 07/30/16 04:00 116 07/30/16 02:00 120 07/30/16 00:00 96 Nasal Cannula 4.00 07/30/16 00:00 118 07/30/16 00:00 98.2 118 16 113/60 96 07/29/16 21:05 118 15 123/67 98 Aerosol Mask 07/29/16 20:54 97 Nasal Cannula 3.00 07/29/16 19:03 116 15 104/58 93 Nasal Cannula 3 07/29/16 17:03 Nasal Cannula 4 07/29/16 16:58 98.0 119 16 116/62 98 Nasal Cannula 4 07/29/16 16:13 97 Nasal Cannula 3.00 07/29/16 15:03 128 20 114/65 98 Nasal Cannula 4 07/29/16 15:01 98 Nasal Cannula 4 07/29/16 14:36 134 22 94 Nasal Cannula 2 07/29/16 14:36 94 Nasal Cannula 4 07/29/16 14:36 94 Nasal Cannula 2 07/29/16 14:33 97.6 129 22 138/102 88 I/O 07/29/16 07/29/16 07/29/16 07/30/16 07/30/16 07/30/16 07:00 15:00 23:00 07:00 15:00 23:00 Intake Total 2824 ml Output Total 1200 ml Balance 1624 ml Intake Oral 800 ml IV Total 2024 ml Output Urine Total 1200 ml # Bowel Movements 0 Result Diagram: 07/30/16 0419 07/30/16 0419 Imaging Last Impressions Chest X-Ray 07/29/16 1435 Signed Impressions: Service Date/Time: Friday, July 29, 2016 15:32 - CONCLUSION: 1. Left basilar airspace disease and small left effusion. Cardiomegaly. Rangel Haji MD Lung Scan-V Nuclear Medicine 07/29/16 Signed Impressions: Service Date/Time: Friday, July 29, 2016 19:40 - CONCLUSION: 1. Low probability for pulmonary bolus. Rangel Haji MD Hip X-Ray 07/29/16 Signed Impressions: Service Date/Time: Friday, July 29, 2016 15:24 - CONCLUSION: Fracture proximal shaft right femur with apex lateral angulation. Questionable pathologic fracture. Bone scan could be performed for further evaluation. Rangel Haji MD Femur X-Ray 07/29/16 Signed Impressions: Service Date/Time: Friday, July 29, 2016 15:25 - CONCLUSION: 1. Pathologic fracture of proximal humeral shaft with lateral angulation. Rangel Haji MD Chest CT 07/29/16 Signed Impressions: Service Date/Time: Friday, July 29, 2016 17:34 - CONCLUSION: 1. Multifocal airspace consolidation the lungs most notable in the left lower lobe and anterior segment left upper lobe loss and subsegmental airspace disease in the other lobes of the lung. There is an associated small left effusion and small pericardial effusion. Findings are most characteristic of pneumonia or aspiration. There is also mild emphysema and mild mediastinal adenopathy. Right [id number]-m-Vzbk tip in superior vena cava. 2. Moderate compression deformity in the lower thoracic spine, probably old. Rangel Haji MD Objective Remarks GENERAL: Well-developed cachectic. In [id number]-hy-[id number] acute distress. Hard of hearing and hoarse voice. SKIN: Warm and dry. No lesions noted. HEENT: Normocephalic. Pupils equal and round. Mucous membranes pink and moist. JVD noted. CARDIOVASCULAR: Tachycardic rate and regular rhythm. No murmur appreciated. RESPIRATORY: Mild use of accessory muscles. Coarse basilar crackles with occasional wheezing. GASTROINTESTINAL: Abdomen soft, non-tender, nondistended. Bowel sounds x4. MUSCULOSKELETAL: Right thigh with obvious deformity, right lower leg shortened and internally rotated. Trace edema NEUROLOGICAL: Awake and alert, but appears sleepy. No focal neurological deficits. Moves upper and lower extremities spontaneously. Normal speech. PSYCHIATRIC: Appropriate mood and affect; insight and judgment fair to normal. A/P Assessment and Plan 07/30/16: Discussion with orthopedic in the morning, awaiting, pulmonary consult for clearance 66-year-old female with a past medical history of recently diagnosed lung cancer who presented with acute right leg pain Right upper mid shaft femur fracture: Hip and femur x-rays personally reviewed, mostly pathologic. Orthopedics was consulted . pt wants to proceed with surgery , Higher risk for surgery with respiratory status as below, awaiting pulmonary clearance prior to surgery. Pain control with oral and intravenous narcotics as needed. Acute respiratory failure , hypoxia likely due to pneumonia : With history of cancer and long bone fracture she is at high risk for embolic however that was ruled out with a low probability VQ scan per oncology recommendation, Oxygen saturation 90s on 4 L O2. ABG reviewed. Chest x-ray shows left basilar airspace disease and small left effusion. Chest CT without contrast reviewed as above, continue azithromycin and ceftriaxone. Scheduled as needed nebs. Supplemental oxygen as needed.Solu-Medrol iv Awaiting pulmonary consultation for clearance for surgery, I discussed with Dr. Garcia last night and informed him about the patient, he graciously stated will see the patient in the morning. Ruled out PE: EKG reviewed and shows SVT. Hypoxia. Patient is high risk due to malignancy and femur fracture. Unable to perform CTA with elevated creatinine. Dr. Mccarty d/w Dr. Zhu, recommended checking VQ scan, and would only fully anticoagulate for high probability VQ scan, VQ scan came back with low probability, no indication for full anticoagulation Acute kidney injury possibly on underlying CKD, : Creatinine 1.77, possibly related to the recent CTA of the chest done on May the hospital, no previous labs for comparison. IVF and follow-up BMP. Lung cancer: Appreciate oncologist, Dr. Zhu Consultation, and for palliative radiation and chemotherapy once addressed orthopedic issue Disposition: close monitoring in ICU for now. Juliana Mccarty MD Jul 30, 2016 11:21
--- NOTE | 2016-07-30 11:50 | EKG ---
Date Performed: 07/29/2016 Time Performed: 17:25:40 PTAGE: 66 years EKG: SINUS TACHYCARDIA WITH OCCASIONAL SUPRAVENTRICULAR PREMATURE COMPLEXES NONSPECIFIC T-WAVE A BNORMALITY ABNORMAL RHYTHM ECG INTERPRETATION BASED ON A DEFAULT AGE OF 40 YEARS NO PREVIOUS TRACING DOCTOR: Richard Diamond Interpretating Date/Time 07/30/2016 11:47:52
[2016-07-30] MEDS: PIPERACIL-TAZO 3.375 GM PREMIX 50 ML IV SCH ×2 (13:01→18:39)
--- NOTE | 2016-07-30 14:10 | MB ---
cc: PARAG LORENZO MD DATE OF CONSULTATION: 07/30/2016. REASON FOR CONSULTATION: Evaluation for lung infiltrate and preop clearance. REQUESTING PHYSICIAN: Dr. Mccarty. HISTORY OF PRESENT ILLNESS: Ms. Mayer is a pleasant 66-year-old female who was recently diagnosed with nonsmall cell carcinoma of the lung. She had a supraclavicular lymph node biopsy done. The patient is being followed by Dr. Zhu and she was supposed to go for radiation and chemotherapy; she has not started yet. The patient was also seeing Dr. Santos Tran. She also saw Dr. Justin for Infusaport placement. The patient had a pop in her leg. She was brought to the hospital and she was found to have a pathological fracture of the right proximal humeral shaft with lateral angulation. The patient is seen by Dr. Brennan Bishop and is being planned for surgery. She does not use any oxygen at home. She uses inhaler treatment. She is able to walk only a short distance. She has cough and congestion. Sometimes she has coughing spells when she eats. PAST MEDICAL HISTORY: Her past medical history is significant for: 1. Recently diagnosed nonsmall cell carcinoma of the lung. 2. COPD. 3. Chronic back pain. 4. DVT. 5. Status post IVC filter placement. 6. Hypercholesteremia. 7. History of breast biopsy. 8. Appendectomy. 9. Infusaport placement. MEDICATIONS: She is currently taking 1. Zithromax 500 milligrams a day. 2. Solu-Medrol 40 milligrams q. 8 hour. 3. Colace 100 milligrams twice a day. 4. Albuterol and Atrovent nebulizer treatments. 5. Rocephin 1 gram a day. ALLERGIES: 1. SULFA. SOCIAL HISTORY: She has a long history of smoking which she quit in 2005. No alcohol use. She worked in an office. FAMILY HISTORY: She is single. Never . No children. She lives by herself. REVIEW OF SYSTEMS: She feels weak, mild shortness of breath and has coughing spells has history of DVT. No seizure or epilepsy. No liver, gallbladder problems. No coronary artery disease. PHYSICAL EXAMINATION: GENERAL: An elderly female mild short of breath not in any acute distress. VITAL SIGNS: Blood pressure 128/75, heart rate 118, respirations 22, temperature 98. HEAD, EYES, EARS, NOSE, THROAT: Pupils are equal and reactive to light. Oral mucosa and nasal mucosa are normal. NECK: The neck is supple. JVP not raised. CHEST: Air entry equal bilaterally. Has a few basal rales. CARDIOVASCULAR: S1 and S2 normal. ABDOMEN: Abdomen benign. EXTREMITIES: No edema. LABORATORY EVALUATIONS: Her white blood cell count is 8.0, hemoglobin 9.3, hematocrit 28.9, MCV 90, platelet count 234,000. Blood gas on two liters nasal cannula: Her pH is 7.39, pc02 33, p02 73, bicarbonate 20. Sodium 140, potassium 3.9, chloride 112, carbon dioxide 24, BUN 39, creatinine 1.05. IMAGING STUDIES: Her VQ scan is low probability for pulmonary embolism. CT scan of the chest showed multifocal air consolidation most notable in the left lower lobe suggestive of aspiration pneumonia. She also has compression deformity of the lower thoracic spine. IMPRESSION: 1. Basal infiltrate lobe, probably pneumonia and likely aspiration. 2. COPD. 3. Pathological fracture of the humerus. 4. Nonsmall cell carcinoma of the lung. 5. COPD. PLAN: I have discussed with the patient and her friend at the bedside she will be at small to moderate risk of pulmonary complications due to the nature of the surgery she requires. She is stable to go for surgery. I will start her on Zosyn IV. Continue Rocephin and Zithromax, IV Solu-Medrol, aerosol treatments, supplement her oxygen. Further treatment will depend on the course in the hospital. Thank you, Dr. Mccarty, for this consultation. MD MEGGAN Rapp/JCKirit /12:36 PM /1:56 PM
[2016-07-30] MEDS ORDERED: LACTATED RINGER'S 1000 ML INJ 1,000 ML IV ONE (14:20)
[2016-07-30] MEDS ORDERED: ONDANSETRON HCL 4 MG/2 ML VIAL IV PUSH ONE (14:20)
[2016-07-30] MEDS ORDERED: PROPOFOL 200 MG/20 ML AMP IV ONE (14:20)
[2016-07-30] MEDS ORDERED: PHENYLEPH/NS 1000 MCG/10 ML SYR IV ONE (14:20)
[2016-07-30] MEDS ORDERED: NEOSTIGMINE 3 MG/3 ML SYR IV ONE (14:20)
[2016-07-30] MEDS ORDERED: VANCOMYCIN HCL 1000 MG VIAL ONE (14:28)
[2016-07-30] MEDS ORDERED: GENTAMICIN SULFATE 80 MG/2 ML VIAL ONE (14:28)
[2016-07-30] MEDS ORDERED: ceFAZolin INJ 1,000 MG VIAL ONE (14:28)
[2016-07-30] MEDS ORDERED: TRANEXAMIC ACID IV SCH (15:00)
[2016-07-30] MEDS ORDERED: SODIUM CHLORIDE 0.9% IV SCH (15:00)
[2016-07-30] MEDS ORDERED: TRANEXAMIC ACID INJ 1,000 MG/10 ML AMP ONE (15:02)
--- NOTE | 2016-07-30 15:42 | PD.OP ---
cc: Brennan Bishop MD Operative Report Date of Surgery: Jul 30, 2016 Preoperative Diagnosis: Right femur pathologic fracture, metastatic lung cancer. Postoperative Diagnosis: Same Procedure: Right femur pathologic fracture stabilization with intramedullary nail Anesthesia: Gen. Surgeon: Brennan Bishop Railroad Brake Repairer(s): DARRYL Alvarado The surgical procedure was assisted by my Advanced Registered Nurse Practitioner. My JUMPBASTING FACING BASTER presence was necessary throughout this case for the manipulation and positioning of the surgical extremity. My JUMPBASTING FACING BASTER was assisting me throughout the duration of this procedure. The skill set of an Advance Registered Nurse Practitioner was medically necessary to complete this procedure. During the surgical case, the surgical product sales consultant was working at the back table and the Advance Registered Nurse Practitioner was directly assisting me. Operation and Findings: This patient was medically cleared and also cleared by pulmonology as being stable for surgery. Although, she is very high risk for multiple medical complications and also complications from the surgery itself. See my consult for further details. The patient was brought back to the operative theater. Gen. anesthesia was administered. The patient received intravenous vancomycin and Ancef. The patient was placed onto the fracture table. The fracture was lined up. The right lower extremity was prepped and draped in the usual sterile fashion. We made incision proximal to the greater trochanter. We used a threaded guidewire down to the proximal femoral shaft. We reamed proximally. We placed a ball-tipped guidewire past the fracture site down to the knee. We sequentially reamed. We saved the reamings and sent these for final pathology. We reamed up to a size 13-1/2. We placed a Synthes 12 mm x 400 mm long trochanteric nail into position. We secured this proximally with a helical blade which was locked into position to make it static. We did this in the standard fashion. Note that there was significant erosive changes of the posterior proximal femur which left that fragment mildly flexed. There were other significant erosive changes noted about the distal fragment as well. The nail was locked in using perfect stebbins technique distally placing 2 screws. One with excellent purchase and one with good purchase. The wounds were thoroughly irrigated. The wounds were closed with 2-0 Vicryl followed by santiago. Postoperative plan: We will consult the medical physicians as far as DVT prophylaxis is concerned. This patient does have history of DVT and also has placement already of an IVC filter. Additionally the patient will likely require radiation of the entire right femur after the wounds are healed. She is nonweightbearing on the right lower extremity. Brennan Bishop MD Jul 30, 2016 15:42
[2016-07-30] MEDS ORDERED: SODIUM CHLORIDE 0.9% FLUSH 5 ML FLUSH IVF PRN (15:45)
[2016-07-30] MEDS ORDERED: ALUMINUM/MAGNESIUM/SIMETH 30 ML CUP PO PRN (15:45)
[2016-07-30] MEDS ORDERED: NALOXONE HCL 0.4 MG/ML AMP IV PRN (15:45)
[2016-07-30] MEDS ORDERED: diphenhydrAMINE HCL 50 MG/ML VIAL IV PRN (15:45)
[2016-07-30] MEDS ORDERED: BISACODYL 10 MG SUPP PR PRN (15:45)
[2016-07-30] MEDS ORDERED: ONDANSETRON HCL 4 MG/2 ML VIAL IVP PRN (15:45)
[2016-07-30] MEDS ORDERED: MAGNESIUM HYDROXIDE SUSP 30 ML CUP PO PRN (15:45)
[2016-07-30] MEDS ORDERED: Post-op Orders (for Pharmacy) MISC XX ONE (15:45)
[2016-07-30] MEDS ORDERED: ZOLPIDEM TARTRATE 5 MG TAB PO PRN (15:45)
[2016-07-30] MEDS ORDERED: NORC5TAB PO (15:48)
[2016-07-30] MEDS ORDERED: ENOX40P SQ (15:48)
[2016-07-30] MEDS ORDERED: SUGAMMADEX SODIUM 200 MG/2 ML VIAL IV PUSH ONE ×2 (16:02)
[2016-07-30] MEDS ORDERED: *RESP: ALBUTEROL 2.5 MG/3 ML NEB (PRN) PERIprocedural Use ONLY NEB ONE (16:14)
--- NOTE | 2016-07-30 16:18 | RADRPT ---
EXAM DATE/TIME: 07/30/2016 14:37 [facility] COMPARISON: No previous studies available for comparison. INDICATIONS : Surgical repair. MEDICAL HISTORY : None. SURGICAL HISTORY : None. ENCOUNTER: Initial ACUITY: 1 day PAIN SCORE: Non-responsive. LOCATION: Right femur. FINDINGS: Spot films reveal osbaldo fixation across a proximal right femoral shaft fracture. Minimal residual displ acement. No complications identified. CONCLUSION: 1. Osbaldo fixation proximal right femur fracture. Rangel Haji MD on July 30, 2016 at 16:15 Board Certified Radiologist. This report was verified electronically.
[2016-07-30] MEDS ORDERED: fentaNYL CITRATE 250 MCG/5 ML AMP ONE (16:19)
[2016-07-30] MEDS ORDERED: *morphine SULFATE 8 MG/ML PERIprocedure ONLY ONE (16:23)
[2016-07-30] MEDS ORDERED: DO NOT ADM ANY ANTICOAGULANT DRUGS XX PRN (16:45)
[2016-07-30] MEDS: cefTRIAXone INJ 1,000 MG in SODIUM CHLORIDE 0.9% INJ 100 ML IV SCH (20:41)
[2016-07-31] VITALS (14 sets, daily range): BP systolic 116–159; BP diastolic 67–99; PULSE 88–128; RESP 21–37; TEMP 97.8–98.4; O2SAT 89–100
[2016-07-31] MEDS: PIPERACIL-TAZO 3.375 GM PREMIX 50 ML IV SCH ×4 (00:31→18:04)
[2016-07-31] MEDS: SODIUM CHLOR 0.9% 1000 ML INJ 1,000 ML IV SCH ×5 (01:33→22:45)
[2016-07-31] MEDS: AZITHROMYCIN INJ 500 MG in SODIUM CHLOR 0.9% 250 ML INJ 250 ML IV SCH (04:10)
[2016-07-31] MEDS: methylPREDNISolone SOD SUCC 40 MG/1 ML VIAL IV PUSH SCH ×3 (05:00→20:43)
[2016-07-31] MEDS ORDERED: AZITHROMYCIN INJ 500 MG in SODIUM CHLOR 0.9% 250 ML INJ 250 ML IV SCH (05:00)
[2016-07-31] MEDS: SODIUM CHLORIDE 0.9% FLUSH 5 ML FLUSH IVF SCH ×4 (08:19→21:00)
[2016-07-31] MEDS: DOCUSATE SODIUM 100 MG CAP PO SCH ×3 (08:19→21:00)
[2016-07-31] MEDS: RESP: ALBUTEROL 2.5 MG/IPRATROPIUM 0.5 MG NEB (SCH) NEB ×3 (08:33→21:13)
[2016-07-31] MEDS ORDERED: cloNIDine HCL 0.1 MG TAB PO PRN (12:00)
[2016-07-31] MEDS: METOPROLOL TARTRATE 25 MG TAB PO SCH ×2 (12:00→20:42)
--- NOTE | 2016-07-31 12:38 | PD.ONC.PN ---
Subjective Subjective Remarks Afebrile overnight. patient resting comfortably without complaint. Her two stepsons arrived from [place]. Objective Data Date Time Temp Pulse Resp B/P Pulse Ox O2 Delivery O2 Flow Rate FiO2 07/31/16 10:00 125 07/31/16 08:36 100 Nasal Cannula 3.00 07/31/16 08:00 120 07/31/16 08:00 98.3 111 21 159/74 89 07/31/16 07:00 Nasal Cannula 4.00 07/31/16 06:00 115 07/31/16 04:00 97.9 117 21 147/99 98 07/31/16 04:00 115 07/31/16 02:00 109 07/31/16 00:00 97.8 109 23 134/74 96 07/31/16 00:00 101 07/31/16 00:00 96 Nasal Cannula 4.00 07/30/16 22:00 115 07/30/16 21:02 99 Nasal Cannula 3.00 07/30/16 20:44 15 07/30/16 20:00 97.8 119 20 131/76 96 07/30/16 20:00 111 07/30/16 18:00 120 07/30/16 17:30 109 07/30/16 17:30 97.9 109 18 129/60 96 07/30/16 17:00 97.4 112 15 113/71 95 Nasal Cannula 3 07/30/16 16:45 105 15 128/72 96 Nasal Cannula 3 07/30/16 16:30 107 15 134/74 99 Aerosol Mask 07/30/16 16:15 114 18 155/83 96 Aerosol Mask 07/30/16 16:09 96.8 110 16 140/99 93 Simple Mask 8 07/31/16 07/31/16 07/31/16 07:00 15:00 23:00 Intake Total 1243 ml Output Total 500 ml Balance 743 ml Result Diagram: 07/30/16 0419 07/30/16 0419 Culture Results Microbiology Date/Time Procedure Status Source Growth 07/29/16 16:30 Aerobic Blood Culture - Preliminary Resulted Blood Peripheral NO GROWTH IN 2 DAYS 07/29/16 16:30 Anaerobic Blood Culture - Preliminary Resulted Blood Peripheral NO GROWTH IN 2 DAYS 07/29/16 16:35 Aerobic Blood Culture - Preliminary Resulted Blood Peripheral NO GROWTH IN 2 DAYS 07/29/16 16:35 Anaerobic Blood Culture - Preliminary Resulted Blood Peripheral NO GROWTH IN 2 DAYS Administered Medications Medications (Trade) Dose Ordered Sig/Kenia Route PRN Reason Start Time Stop Time Status Last Admin Dose Admin Sodium Chloride (NS 1000 ml Inj) 1,000 ml @ 75 mls/hr [id number] IV 07/29/16 17:25 07/29/16 17:25 IV Flush (NS Flush) 2 ml BID IVF 07/29/16 21:00 07/30/16 20:41 Morphine Sulfate (Morphine Inj) 5 mg Q2H PRN IV PUSH BREAKTHROUGH PAIN 07/29/16 17:30 07/30/16 20:39 Ondansetron HCl (Zofran Inj) 4 mg Q6H PRN IVP NAUSEA OR VOMITING 07/29/16 17:30 07/30/16 20:39 Docusate Sodium 100 mg 100 mg BID PO 07/29/16 21:00 07/30/16 20:41 Ceftriaxone Sodium/Sodium Chloride (Rocephin Inj/NS Inj) 100 ml @ 200 mls/hr DAILY@2000 IV 07/29/16 18:00 07/30/16 20:41 Methylprednisolone Sodium Succinate 40 mg 40 mg Q8HR IV PUSH 07/29/16 22:00 07/31/16 05:00 Piperacillin Sod/ Tazobactam Sod 50 ml @ 100 mls/hr Q6H IV 07/30/16 13:00 07/31/16 05:57 Sodium Chloride 1,000 ml @ 100 mls/hr Q10H IV 07/30/16 15:33 07/31/16 11:25 Azithromycin/ Sodium Chloride (Zithromax Inj/ NS 250 ml Inj) 250 ml @ 250 mls/hr Q24H IV 07/31/16 05:00 07/31/16 04:10 Objective Remarks GENERAL: Frail female, sitting up in ICU chair sipping on pepsi, two stepsons at bedside. SKIN: Warm and dry. HEAD: Normocephalic. EYES: No injection or drainage. NECK: Supple, trachea midline. CARDIOVASCULAR: Regular rate and rhythm RESPIRATORY: diminished at bases. anterior spence clear. On 3L O2 via NC GASTROINTESTINAL: Abdomen soft, non-tender, nondistended. EXTREMITIES: No cyanosis. NEUROLOGICAL: awake and alert, normal speech. moving all extremities. Assessment/Plan Problem List: (1) Metastatic lung carcinoma Status: Acute Plan: 07/31/16: discussed with patient healthcare surrogate form. She indicates she wants to speak with her cousin before filling it out. discussed with radiation oncology--patient scheduled for appointment tomorrow with Dr. Tran. consulted palliative care to help patient decide on goals of care. d/w Maria T with palliative care. d/w Dr. Tran of radiation oncology who the patient is known to and will place consult to radiation oncology for today, as well. --Workup (done at [facility]) CT C/A/P showed left upper lobe lung mass with left SC LAD + liver lesion CT brain showed 2 masses pathology of supraclav. mass showed adenocarcinoma, NSCLC --XRT to start Sunday [place] [place]showed multifocal air space consolidation +small left pleural effusion and small pericardial effusion. (2) Femoral shaft fracture Status: Acute Plan: --this is a pathologic fracture --ortho has been consulted and patient underwent ORIF with intramedullary nail placement on 07/30/16. (3) DVT, bilateral lower limbs Status: Acute Plan: --s/p IVC filter placement (4) Hypercalcemia of malignancy Status: Acute Plan: --given Aredia on 07/29/16 Assessment 66y/o with recently diagnosed metastatic NSCLC with brain mets, admitted with pathologic fracture to right femur. h/o COPD, Chronic back pain. DVT + IVC filter. Attending Statement no new c/o await palliative care input. consult DR Tran for XRT The exam, history, and the medical decision-making described in the above note were completed with the assistance of the mid-level provider. I reviewed and agree with the findings presented. I attest that I had a [id number] encounter with the patient on the same day, and personally performed and documented my assessment and findings in the medical record. Problem Qualifiers (1) Femoral shaft fracture: Qualified Code: S72.391A - Other closed fracture of shaft of right femur, initial encounter Mercedez Benitez Jul 31, 2016 12:38 Kendal Zhu MD Jul 31, 2016 22:51
[2016-07-31] MEDS: MEGESTROL ACETATE 40 MG TAB PO SCH ×3 (14:36→20:42)
[2016-07-31] MEDS: ENOXAPARIN SODIUM 40 MG/0.4 ML SYRINGE SQ SCH (14:36)
--- NOTE | 2016-07-31 14:54 | PD.ORT.PN ---
Subjective Post Op Day #: 1 Subjective Remarks The patient is OOB sitting in chair with mild SOB. The patient reports mild to moderate right femur pain. Objective Vitals Vital Signs Date Time Temp Pulse Resp B/P Pulse Ox O2 Delivery O2 Flow Rate FiO2 07/31/16 12:00 118 07/31/16 12:00 98.4 118 37 116/67 98 07/31/16 10:00 125 07/31/16 08:36 100 Nasal Cannula 3.00 07/31/16 08:00 120 07/31/16 08:00 98.3 111 21 159/74 89 07/31/16 07:00 Nasal Cannula 4.00 07/31/16 06:00 115 07/31/16 04:00 97.9 117 21 147/99 98 07/31/16 04:00 115 07/31/16 02:00 109 07/31/16 00:00 97.8 109 23 134/74 96 07/31/16 00:00 101 07/31/16 00:00 96 Nasal Cannula 4.00 07/30/16 22:00 115 07/30/16 21:02 99 Nasal Cannula 3.00 07/30/16 20:44 15 07/30/16 20:00 97.8 119 20 131/76 96 07/30/16 20:00 111 07/30/16 18:00 120 07/30/16 17:30 109 07/30/16 17:30 97.9 109 18 129/60 96 07/30/16 17:00 97.4 112 15 113/71 95 Nasal Cannula 3 07/30/16 16:45 105 15 128/72 96 Nasal Cannula 3 07/30/16 16:30 107 15 134/74 99 Aerosol Mask 07/30/16 16:15 114 18 155/83 96 Aerosol Mask 07/30/16 16:09 96.8 110 16 140/99 93 Simple Mask 8 I/O 07/30/16 07/30/16 07/30/16 07/31/16 07/31/16 07/31/16 07:00 15:00 23:00 07:00 15:00 23:00 Intake Total 2824 ml 906 ml 2121 ml 1243 ml Output Total 1200 ml 650 ml 500 ml Balance 1624 ml 906 ml 1471 ml 743 ml Intake Oral 800 ml 0 ml 400 ml 250 ml IV Total 2024 ml 906 ml 721 ml 993 ml Other 1000 ml Output Urine Total 1200 ml 600 ml 500 ml Estimated Blood Loss 50 ml # Voids 2 # Bowel Movements 0 0 0 Result Diagram: 07/30/1641807/30/169 Procedures Right femur pathologic fracture stabilization with intramedullary nail Objective Remarks The patient's dressings are C/D/I. EHL/TA/G are intact. No calf pain or tenderness. Mild swelling to the right hip. + SILT. 2+ pedal pulse. Assessment & Plan Ortho Post Op Day #: 1 Problem List: Assessment and Plan POD #1: Right femur pathologic fracture stabilization with intramedullary nail 1. NWB RLE 2. Lovenox for DVT prophylaxis per medical. Patient has history of DVT with IVC filter 3. Ice to the right thigh PRN 4. Patient will likely require radiation to the right femur once incisions are healed 5. We will continue to follow the pathology report from intramedulary reamings. Олег Treadwell Jul 31, 2016 14:53
--- NOTE | 2016-07-31 15:00 | PD.CONS ---
Consult Service Palliative Care Consult Requested By ARTURO [place]. . Primary Care Physician Ana Botello Reason for Consultation a. To assist with evaluation and management of symptoms including: cough, dyspnea, anxiety, constipation. b. To assist medical decision maker(s) with: better understanding of current medical conditions; weighing benefits/burdens of medical treatment options; making medical treatment decisions. . HPI History of Present Illness Ms. Tabares is a 66 year old female with past medical history of COPD, high cholesterol, chronic back pain, bilateral LE DVT s/p IVC filter placement and recent diagnosis of Stage IV non-small cell lung cancer to lymph nodes, liver, brain and bone. Patient has previously been seen at [facility] and [place] found to have bilateral lower extremity DVT and underwent IVC filter placement. CT scan of the chest abdomen and pelvis revealed left upper lobe lung mass with left supraclavicular lymphadenopathy and a lesion in the liver. These findings were suspicious of metastatic lung cancer. She underwent left supraclavicular lymph node biopsy which revealed non-small cell lung cancer, adenocarcinoma. She was scheduled to start radiation therapy with Dr. Tran in the next week. She underwent Port placement by Dr. Justin on . Unfortunately the patient had insurance issues and was unable to see medical oncologist prior to beginning of next month. Patient presented to [facility] again 2 days prior to presentation here at [place] complaining of shortness of breath. CT angiogram did not show any pulmonary embolism, however it showed worsening left pleural effusion, worsening of lung mass mediastinal adenopathy she was discharged home. Patient presented to [facility] emergency department on 07/29/16 with increasing shortness of breath and what friends reported as a "pop" in her right leg. Paramedics were called brought her to the emergency department for further evaluation.. Evaluation revealed: * WBC 11.1, hemoglobin 12.7, hematocrit 38.9, platelet 206 * Sodium 140, potassium 5.3, BUN 48, creatinine 1.77, GFR 29 * Total bilirubin 0.5, AST 45, ALT 17, alkaline phosphatase 132 * Troponin less than 0.02 * BNP 102 * Total protein 8.0, albumin 3.1. * X-rays revealed pathologic fracture proximal humoral shaft with lateral angulation. * VQ scan revealed low probability for pulmonary embolus. * CT chest revealed multifocal airspace consolidation of the lungs most notable in the left lower lobe and anterior segment of the left upper lobe, sub segmental airspace disease in other lung lobes, small left effusion and small pericardial effusion, findings characteristic of pneumonia or aspiration, mild emphysema and mild mediastinal adenopathy, right Port tip in SVC, moderate compression deformity the lower thoracic spine (old). * Oxygen saturation 88%, improved with oxygen NC Medical oncology, Dr. Zhu was consulted for evaluation of lung cancer. Radiation oncology, Dr. Tran was consulted. Orthopedics, Dr. Soria was consulted. Dr. Garcia, paratransit driver was consulted for pulmonary clearance prior to surgery. He was determined she was at small to moderate risk of pulmonary complications and cleared for surgical intervention. Patient underwent right femur pathologic fracture stabilization with intramedullary nail placement on 07/30/16. Palliative care is consulted to assist with further clarification of treatment goals. Oncology notes indicate overall poor prognosis given her general debility, poor functional status and advanced disease. Any treatments offered would be considered palliative not curative. Discussed with Mercedez Benitez, Dr. Tran and nursing staff. . Function/Cognitive Trajectory Patient indicates that she has had ongoing decline over the past few months, she has lost approximately 40 pounds in less than 6 months. Decreased appetite. Increased weakness and fatigue. . Review of Systems Constitutional: COMPLAINS OF: Fatigue, Weight loss (40 pounds in less than 6 months), Change in appetite (decreased), Pain (chronic back pain, right hip), Generalized weakness Respiratory: COMPLAINS OF: Cough, Hemoptysis (times 1 or to hospitalization), Shortness of breath Cardiovascular: COMPLAINS OF: Dyspnea on Exertion, Lower Extremity Edema, Orthopnea Gastrointestinal: COMPLAINS OF: Constipation Musculoskeletal: COMPLAINS OF: Back pain (chronic) Hematologic/Lymphatics: COMPLAINS OF: Bruising Immunologic/Allergic: COMPLAINS OF: Urticaria Neurologic: COMPLAINS OF: Poor Balance Psychiatric: COMPLAINS OF: Anxiety (secondary to shortness of breath) Past Family Social History Coded Allergies: Sulfa (Verified Allergy, Unknown, 07/29/16) Past Medical History Stage IV Metastatic non-small cell lung cancer to brain and bone COPD Chronic back pain Hypercholesterolemia Recent bilateral lower extremity DVT status post IVC filter placement . Past Surgical History Right chest port placement Appendectomy Breast biopsy Right supraclavicular lymph node biopsy . Reported Medications Active Reported Albuterol Neb (Albuterol Sulfate) 2.5 Mg/3 Ml Neb 2.5 Mg NEB Prednisone (21) 10 mg tab Dose Pack (Prednisone) 10 Mg Pack 10 Mg PO DIRECTED Potassium Chloride ER (Potassium Chloride) 10 Meq Cap 10 Meq PO BID Megestrol (Megestrol Acetate) 40 Mg Tab 40 Mg PO QID Phenergan (Promethazine HCl) 25 Mg Tab 25 Mg PO QID Levofloxacin 500 Mg Tab 500 Mg PO DAILY Hydromorphone (Hydromorphone HCl) 4 Mg Tab 4 Mg PO Q4H PRN Furosemide 20 Mg Tab 20 Mg PO DAILY . Current Medications Medications (Trade) Dose Ordered Sig/Kenia Route Start Time Stop Time Status Last Admin IV Flush 2 ml 2 ml UNSCH PRN IVF 07/29/16 14:45 (NS 1000 ml Inj) 1,000 ml @ 75 mls/hr [id number] IV 07/29/16 17:25 07/29/16 17:25 (NS Flush) 2 ml UNSCH PRN IVF 07/29/16 17:30 (NS Flush) 2 ml BID IVF 07/29/16 21:00 07/30/16 20:41 ([place] 5-325 Mg) 1 tab Q4H PRN PO 07/29/16 17:30 ([place] 5-325 Mg) 2 tab Q4H PRN PO 07/29/16 17:30 (Morphine Inj) 5 mg Q2H PRN IV PUSH 07/29/16 17:30 07/30/16 20:39 (Zofran Inj) 4 mg Q6H PRN IVP 07/29/16 17:30 07/30/16 20:39 (Tylenol) 650 mg Q4H PRN PO 07/29/16 17:30 (Colace) 100 mg BID PO 07/29/16 21:00 07/30/16 20:41 Magnesium Hydroxide 30 ml 30 ml Q6H PRN PO 07/29/16 17:30 (Rocephin Inj/NS Inj) 100 ml @ 200 mls/hr DAILY@2000 IV 07/29/16 18:00 07/30/16 20:41 Methylprednisolone Sodium Succinate 40 mg 40 mg Q8HR IV PUSH 07/29/16 22:00 07/31/16 13:04 Piperacillin Sod/ Tazobactam Sod 50 ml @ 100 mls/hr Q6H IV 07/30/16 13:00 07/31/16 13:04 (NS 1000 ml Inj) 1,000 ml @ 100 mls/hr Q10H IV 07/30/16 15:33 07/31/16 11:25 (NS Flush) 2 ml UNSCH PRN IVF 07/30/16 15:45 (NS Flush) 2 ml BID IVF 07/30/16 21:00 (Lovenox Inj) 40 mg Q24H SQ 07/31/16 15:00 08/09/16 15:01 07/31/16 14:36 (Theragran M Tab) 1 tab BID PO 07/31/16 21:00 09/29/16 20:59 (Zofran Inj) 4 mg Q6H PRN IVP 07/30/16 15:45 (Colace) 100 mg BID PO 07/31/16 21:00 (Mag-Al Plus Susp Liq) 30 ml Q6H PRN PO 07/30/16 15:45 (Ambien) 5 mg HS PRN PO 07/30/16 15:45 (Dulcolax Supp) 10 mg DAILY PRN WI 07/30/16 15:45 (Milk Of Magnesia Liq) 30 ml DAILY PRN PO 07/30/16 15:45 (Narcan Inj) 0.4 mg UNSCH PRN IV 07/30/16 15:45 (Benadryl Inj) 25 mg Q6H PRN IV 07/30/16 15:45 Miscellaneous Information ALL NURSING DEPARTME... UNSCH PRN XX 07/30/16 16:45 07/31/16 16:44 (Zithromax Inj/ NS 250 ml Inj) 250 ml @ 250 mls/hr Q24H IV 07/31/16 05:00 07/31/16 04:10 (Megace) 40 mg QID PO 07/31/16 13:00 07/31/16 14:36 (Catapres) 0.1 mg Q6H PRN PO 07/31/16 12:00 (Lopressor) 25 mg Q12HR PO 07/31/16 12:00 07/31/16 12:00 . Family History Father had cancer Substance Use Tobacco: Used to smoke 1.5 PPD for years, quit 10 years ago. Alcohol: denies. Prescription med abuse: denies. Illicits: denies. . Psychosocial History Single, never . Had previous long-term relationship, he approximately 10 years ago. She has 2 "step-sons" from this prior long-term relationship. Lives alone in [place]. Supported by friends, cousins and to stepsons. . Physical Exam Vital Signs Date Time Temp Pulse Resp B/P Pulse Ox O2 Delivery O2 Flow Rate FiO2 07/31/16 12:00 118 07/31/16 12:00 98.4 118 37 116/67 98 07/31/16 10:00 125 07/31/16 08:36 100 Nasal Cannula 3.00 07/31/16 08:00 120 07/31/16 08:00 98.3 111 21 159/74 89 07/31/16 07:00 Nasal Cannula 4.00 07/31/16 06:00 115 07/31/16 04:00 97.9 117 21 147/99 98 07/31/16 04:00 115 07/31/16 02:00 109 07/31/16 00:00 97.8 109 23 134/74 96 07/31/16 00:00 101 07/31/16 00:00 96 Nasal Cannula 4.00 07/30/16 22:00 115 07/30/16 21:02 99 Nasal Cannula 3.00 07/30/16 20:44 15 07/30/16 20:00 97.8 119 20 131/76 96 07/30/16 20:00 111 07/30/16 18:00 120 07/30/16 17:30 109 07/30/16 17:30 97.9 109 18 129/60 96 07/30/16 17:00 97.4 112 15 113/71 95 Nasal Cannula 3 07/30/16 16:45 105 15 128/72 96 Nasal Cannula 3 07/30/16 16:30 107 15 134/74 99 Aerosol Mask 07/30/16 16:15 114 18 155/83 96 Aerosol Mask 07/30/16 16:09 96.8 110 16 140/99 93 Simple Mask 8 07/30/16 07/31/16 19:00 07:00 Intake Total 2006 ml 2264 ml Output Total 250 ml 900 ml Balance 1756 ml 1364 ml Intake Oral 0 ml 650 ml IV Total 1006 ml 1614 ml Other 1000 ml Output Urine Total 200 ml 900 ml Estimated Blood Loss 50 ml # Voids 2 # Bowel Movements 0 0 Exam CONSTITUTIONAL/GENERAL: This is a thin patient who appears older than her actual age, TUBES/LINES/DRAINS: Oxygen via NC, PIV. SKIN: No jaundice, rashes, or lesions. Ecchymoses on upper extremities. Dressing right hip, not visualized sitting in stretcher chair. Skin temperature appropriate. Not diaphoretic. HEAD: Atraumatic. Normocephalic. EYES: Pupils equal and round and reactive. Extraocular motions intact. No scleral icterus. No injection or drainage. Fundi not examined. ENT: Hearing grossly normal. Nose without bleeding or purulent drainage. Throat without visible erythema, exudates, masses, or lesions. Voice weak and soft. NECK: Trachea midline. Supple, nontender. CARDIOVASCULAR: Regular rate and rhythm without murmurs, gallops, or rubs. No JVD. Peripheral pulses symmetric. RESPIRATORY/CHEST: Symmetric, mildly labored respirations at rest. Breath sounds course and diminished bilaterally. GASTROINTESTINAL: Abdomen soft, non-tender, nondistended. No guarding. Bowel sounds present. GENITOURINARY: Without palpable bladder distension. Schneider catheter in place. MUSCULOSKELETAL: Extremities with trace edema right. No mottling or clubbing. LYMPHATICS: left supraclavicular adenopathy. NEUROLOGICAL: Awake and alert. Motor and sensory grossly within normal limits. Follows commands. Cognitively sharp. Moves all extremities. PSYCHIATRIC: Smiling, makes intermittent jokes. Self reports anxiety with dyspnea or when laying flat. . Diagnostic Tests Laboratory Laboratory Tests Test 07/29/16 07/29/16 07/29/16 07/29/16 14:55 16:15 17:22 22:25 White Blood Count 11.1 TH/MM3 (4.0-11.0) Red Blood Count 4.15 MIL/MM3 (4.00-5.30) Hemoglobin 12.7 GM/DL (11.6-15.3) Hematocrit 38.9 % (35.0-46.0) Mean Corpuscular Volume 93.6 FL (80.0-100.0) Mean Corpuscular Hemoglobin 30.6 PG (27.0-34.0) Mean Corpuscular Hemoglobin 32.7 % Concent (32.0-36.0) Red Cell Distribution Width 17.9 % (11.6-17.2) Platelet Count 206 TH/MM3 (150-450) Mean Platelet Volume 10.1 FL (7.0-11.0) Neutrophils (%) (Auto) 89.0 % (16.0-70.0) Lymphocytes (%) (Auto) 5.9 % (9.0-44.0) Monocytes (%) (Auto) 4.7 % (0.0-8.0) Eosinophils (%) (Auto) 0.2 % (0.0-4.0) Basophils (%) (Auto) 0.2 % (0.0-2.0) Neutrophils # (Auto) 9.9 TH/MM3 (1.8-7.7) Lymphocytes # (Auto) 0.6 TH/MM3 (1.0-4.8) Monocytes # (Auto) 0.5 TH/MM3 (0-0.9) Eosinophils # (Auto) 0.0 TH/MM3 (0-0.4) Basophils # (Auto) 0.0 TH/MM3 (0-0.2) CBC Comment AUTO DIFF Differential Total Cells 100 Counted Neutrophils % (Manual) 66 % (16-70) Band Neutrophils % 17 % (0-6) Lymphocytes % 5 % (9-44) Monocytes % 8 % (0-8) Neutrophils # (Manual) 9.7 TH/MM3 (1.8-7.7) Metamyelocytes 3 % (0-1) Myelocytes 1 % (0-0) Differential Comment FINAL DIFF MANUAL Toxic Vacuolation PRESENT (NONE SEEN) Platelet Estimate NORMAL (NORMAL) Platelet Morphology Comment NORMAL (NORMAL) Sodium Level 140 MEQ/L (136-145) Potassium Level 5.3 MEQ/L (3.5-5.1) Chloride Level 104 MEQ/L (98-107) Carbon Dioxide Level 23.4 MEQ/L (21.0-32.0) Anion Gap 13 MEQ/L (5-15) Blood Urea Nitrogen 48 MG/DL (7-18) Creatinine 1.77 MG/DL (0.50-1.00) Estimat Glomerular Filtration 29 ML/MIN (>89) Rate Random Glucose 122 MG/DL (74-106) Calcium Level 11.0 MG/DL (8.5-10.1) Total Bilirubin 0.5 MG/DL (0.2-1.0) Aspartate Amino Transf 45 U/L (15-37) (AST/SGOT) Alanine Aminotransferase 17 U/L (10-53) (ALT/SGPT) Alkaline Phosphatase 132 U/L (45-117) Troponin I LESS THAN 0.02 NG/ML (0.02-0.05) B-Type Natriuretic Peptide 102 PG/ML (0-100) Total Protein 8.0 GM/DL (6.4-8.2) Albumin 3.1 GM/DL (3.4-5.0) Prothrombin Time 14.4 SEC (9.8-11.6) Prothromb Time International 1.3 RATIO Ratio Activated Partial 25.2 SEC Thromboplast Time (24.3-30.1) Blood Gas Puncture Site RT RADIAL Blood Gas Patient Temperature 98.6 Blood Gas HCO3 20 mmol/L (22-26) Blood Gas Base Excess -4.9 mmol/L (-2-2) Blood Gas Oxygen Saturation 93 % (90-100) Arterial Blood pH 7.32 (7.380-7.420) Arterial Blood Partial 40 mmHg (38-42) Pressure CO2 Arterial Blood Partial 89 mmHG Pressure O2 (61-120) Arterial Blood Oxygen Content 13.0 Vol % (12.0-20.0) Arterial Blood 2.2 % (0-4) Carboxyhemoglobin Arterial Blood Methemoglobin 1.4 % (0-2) Blood Gas Hemoglobin 9.9 G/DL (12.0-16.0) Oxygen Delivery Device NASAL CANNULA Blood Gas Liter Flow 4 L/M Nasal Screen MRSA (PCR) NEGATIVE (NEGATIVE) Test 07/30/16 07/30/16 07/30/16 04:19 10:51 11:25 White Blood Count 8.0 TH/MM3 (4.0-11.0) Red Blood Count 3.06 MIL/MM3 (4.00-5.30) Hemoglobin 9.3 GM/DL (11.6-15.3) Hematocrit 28.9 % (35.0-46.0) Mean Corpuscular Volume 94.3 FL (80.0-100.0) Mean Corpuscular Hemoglobin 30.3 PG (27.0-34.0) Mean Corpuscular Hemoglobin 32.1 % Concent (32.0-36.0) Red Cell Distribution Width 17.5 % (11.6-17.2) Platelet Count 234 TH/MM3 (150-450) Mean Platelet Volume 9.9 FL (7.0-11.0) Sodium Level 146 MEQ/L (136-145) Potassium Level 3.9 MEQ/L (3.5-5.1) Chloride Level 112 MEQ/L (98-107) Carbon Dioxide Level 24.2 MEQ/L (21.0-32.0) Anion Gap 10 MEQ/L (5-15) Blood Urea Nitrogen 39 MG/DL (7-18) Creatinine 1.05 MG/DL (0.50-1.00) Estimat Glomerular Filtration 53 ML/MIN (>89) Rate Random Glucose 121 MG/DL (74-106) Calcium Level 8.8 MG/DL (8.5-10.1) Total Bilirubin 0.3 MG/DL (0.2-1.0) Aspartate Amino Transf 16 U/L (15-37) (AST/SGOT) Alanine Aminotransferase 12 U/L (10-53) (ALT/SGPT) Alkaline Phosphatase 102 U/L (45-117) Total Protein 6.1 GM/DL (6.4-8.2) Albumin 2.3 GM/DL (3.4-5.0) Blood Gas Puncture Site RT RADIAL Blood Gas Patient Temperature 98.6 Blood Gas HCO3 20 mmol/L (22-26) Blood Gas Base Excess -4.2 mmol/L (-2-2) Blood Gas Oxygen Saturation 91 % (90-100) Arterial Blood pH 7.39 (7.380-7.420) Arterial Blood Partial 33 mmHg (38-42) Pressure CO2 Arterial Blood Partial 73 mmHg Pressure O2 (61-120) Arterial Blood Oxygen Content 11.7 Vol % (12.0-20.0) Arterial Blood 1.7 % (0-4) Carboxyhemoglobin Arterial Blood Methemoglobin 0.8 % (0-2) Blood Gas Hemoglobin 9.0 G/DL (12.0-16.0) Oxygen Delivery Device NASAL CANNULA Blood Gas Liter Flow 2 L/M Blood Type A POSITIVE Antibody Screen NEGATIVE Result Diagram: 07/30/16 0419 07/30/16 0419 Microbiology Microbiology Date/Time Procedure Status Source Growth 07/29/16 16:30 Aerobic Blood Culture - Preliminary Resulted Blood Peripheral NO GROWTH IN 2 DAYS 07/29/16 16:30 Anaerobic Blood Culture - Preliminary Resulted Blood Peripheral NO GROWTH IN 2 DAYS 07/29/16 16:35 Aerobic Blood Culture - Preliminary Resulted Blood Peripheral NO GROWTH IN 2 DAYS 07/29/16 16:35 Anaerobic Blood Culture - Preliminary Resulted Blood Peripheral NO GROWTH IN 2 DAYS . Imaging Last Impressions Femur X-Ray 07/30/16 0000 Signed Impressions: Service Date/Time: Saturday, July 30, 2016 14:37 - CONCLUSION: 1. Osbaldo fixation proximal right femur fracture. Rangel Haji MD Chest X-Ray 07/29/16 1435 Signed Impressions: Service Date/Time: Friday, July 29, 2016 15:32 - CONCLUSION: 1. Left basilar airspace disease and small left effusion. Cardiomegaly. Rangel Haji MD Lung Scan- Nuclear Medicine 07/29/16 0000 Signed Impressions: Service Date/Time: Friday, July 29, 2016 19:40 - CONCLUSION: 1. Low probability for pulmonary bolus. Rangel Haji MD Hip X-Ray 07/29/16 0000 Signed Impressions: Service Date/Time: Friday, July 29, 2016 15:24 - CONCLUSION: Fracture proximal shaft right femur with apex lateral angulation. Questionable pathologic fracture. Bone scan could be performed for further evaluation. Ragnel Haji MD Chest CT 07/29/16 0000 Signed Impressions: Service Date/Time: Friday, July 29, 2016 17:34 - CONCLUSION: 1. Multifocal airspace consolidation the lungs most notable in the left lower lobe and anterior segment left upper lobe loss and subsegmental airspace disease in the other lobes of the lung. There is an associated small left effusion and small pericardial effusion. Findings are most characteristic of pneumonia or aspiration. There is also mild emphysema and mild mediastinal adenopathy. Right [id number] tip in superior vena cava. 2. Moderate compression deformity in the lower thoracic spine, probably old. Rangel Haji MD . Patient/Family Conference Present at Family Conference: Met with patient alone at 11am. Met with patient and step sons (Joce and Manny ) at 3:30pm. . Family Conference Time (mins): 75 Family Conference Location: Bedside Issues Discussed: * Palliative care role, purpose, approach * Additional medical, psychosocial, and spiritual history * Patients general health, functional status, and cognitive changes in the months leading up to the current hospitalization * Patient/family understanding of the current medical problems * Patient/family understanding of prognosis * Patients goals of care as best understood from advance directives and/or conversations and/or values * Current medical treatment options and benefits/burdens of those options * Likely scenarios comparing ongoing aggressive care with a transition to comfort measures only * Questions answered to the best of my ability * Palliative care contact information provided In summary, lengthy review of findings with patient and again later with family. She has a good understanding of the extent of disease and that treatments being offered are palliative not curative. She wants to proceed with palliative radiation to the femur and brain. She is considering who she would want to serve as HCS, paperwork left in room. She elects DNR and has completed a [place] DNR order, family supports her decisions. Copy of DNR order given to [facility]. She and family are open to conversations regarding best and worst case scenarios. She understands at some time her condition will decline. Palliative care number provided. . Assessment and Plan Disease Oriented Problem List: (1) Femoral shaft fracture (2) Hypercalcemia of malignancy (3) DVT, bilateral lower limbs (4) Metastatic lung carcinoma Symptom Scale: (1) Dyspnea 0-10 Scale: Unable to quantify (2) Cough 0-10 Scale: Unable to quantify (3) Anxiety 0-10 Scale: Unable to quantify Comment: increased with dyspnea. (4) Constipation 0-10 Scale: Unable to quantify Comment: LBM prior to admission. Pertinent Non-Medical Issues Psychosocial: Single. Supported by her friends, cousins and 2 stepsons (who live out of town). Spiritual: None. Legal: No written advanced directives. She is consider who she would want to speak for her, willing to implement HCS after she can talk to those she is considering. Ethical issues impacting care: No known concerns at this time. . Important Contacts * Manny Tripp, step-son: [phone] * Joce Cullenananthon: [phone] * Cecelia Tatums: [phone] . Prognosis Overall prognosis poor given poor functional and nutritional status, advanced disease mets lung to liver, adenopathy, brain and bone. . Code Status: No Code Plan * Considering written advanced directives. Left Designation of Health care surrogate paperwork at bedside. She is trying to decide who she wants to appoint. * NO CODE per pt wishes. [place] Do Not Resuscitate Order signed by patient, original on chart, copy to [facility] and sent to [facility] to be scanned into EMR. * Met with patient and her step-sons (Joce and Manny). In summary, lengthy review of findings with patient and again later with family. She has a good understanding of the extent of disease and that treatments being offered are palliative not curative. She wants to proceed with palliative radiation to the femur and brain. She is considering who she would want to serve as HCS, paperwork left in room. She elects DNR and has completed a [place] DNR order, family supports her decisions. Copy of DNR order given to [facility]. She and family are open to conversations regarding best and worst case scenarios. She understands at some time her condition will decline. Palliative care number provided. * Discussed with Mercedez Benitez, Dr. Tran and nursing staff. Dr. Tran plans to start XRT to femur (x 5 treatments) prior to brain XRT. * SYMPTOMS: Cough: secondary to COPD and lung cancer. Would consider Tessalon Perles. Constipation:Has bowel protocol in place. Will monitor. Encouraged PRN med use. Dyspnea: secondary to pneumonia, lung cancer and COPD. Has Oxygen and PRN Morphine. Anxiety: Added Lorazepam 0.5mg PO every 4 hours PRN anxiety. Will likely benefit from pre-meds (lorazepam) prior to XRT due to anxiety and dyspnea when laying flat. Dr. Tran aware. * Palliative care number provided. * Palliative care will continue to follow to assist with symptom management and further clarifications of treatment goals. . Thank you for the opportunity to participate in the care of Ms. Tabares. Attestation To help prompt me to consider important information that might be impacting today's encounter and assessment, information from prior notes written by myself or my colleagues may have been "brought forward" into today's note. My signature on this note, however, is an attestation that I personally performed the exam, history, and/or decision-making noted today, and, unless otherwise indicated, the interactions with patient, family, and staff as well as the review of records all occurred today. I also attest that the listed assessment and stated plan reflect my best clinical judgment today based on the combination of historical information, prior notes, and today's exam/ interactions. When time spent is documented, it refers only to time spent today by the signer, or if indicated, combined time spent today by collaborating physician/nurse practitioner. AMRITA RAVI Jul 31, 2016 15:00
--- NOTE | 2016-07-31 15:50 | HHI.PR ---
Subjective Remarks Patient denied having leg pain, or physical exam she did have some Rales will DC iv fluid She denied chest pain, she is afebrile Objective Vitals Vital Signs Date Time Temp Pulse Resp B/P Pulse Ox O2 Delivery O2 Flow Rate FiO2 07/31/16 12:00 118 07/31/16 12:00 98.4 118 37 116/67 98 07/31/16 10:00 125 07/31/16 08:36 100 Nasal Cannula 3.00 07/31/16 08:00 120 07/31/16 08:00 98.3 111 21 159/74 89 07/31/16 07:00 Nasal Cannula 4.00 07/31/16 06:00 115 07/31/16 04:00 97.9 117 21 147/99 98 07/31/16 04:00 115 07/31/16 02:00 109 07/31/16 00:00 97.8 109 23 134/74 96 07/31/16 00:00 101 07/31/16 00:00 96 Nasal Cannula 4.00 07/30/16 22:00 115 07/30/16 21:02 99 Nasal Cannula 3.00 07/30/16 20:44 15 07/30/16 20:00 97.8 119 20 131/76 96 07/30/16 20:00 111 07/30/16 18:00 120 07/30/16 17:30 109 07/30/16 17:30 97.9 109 18 129/60 96 07/30/16 17:00 97.4 112 15 113/71 95 Nasal Cannula 3 07/30/16 16:45 105 15 128/72 96 Nasal Cannula 3 07/30/16 16:30 107 15 134/74 99 Aerosol Mask 07/30/16 16:15 114 18 155/83 96 Aerosol Mask 07/30/16 16:09 96.8 110 16 140/99 93 Simple Mask 8 I/O 07/30/16 07/30/16 07/30/16 07/31/16 07/31/16 07/31/16 07:00 15:00 23:00 07:00 15:00 23:00 Intake Total 2824 ml 906 ml 2121 ml 1243 ml Output Total 1200 ml 650 ml 500 ml Balance 1624 ml 906 ml 1471 ml 743 ml Intake Oral 800 ml 0 ml 400 ml 250 ml IV Total 2024 ml 906 ml 721 ml 993 ml Other 1000 ml Output Urine Total 1200 ml 600 ml 500 ml Estimated Blood Loss 50 ml # Voids 2 # Bowel Movements 0 0 0 Result Diagram: 07/30/1641807/30/16418 Objective Remarks GENERAL: Well-developed cachectic. In [id number] acute distress. Hard of hearing and hoarse voice. SKIN: Warm and dry. No lesions noted. HEENT: Normocephalic. Pupils equal and round. Mucous membranes pink and moist. JVD noted. CARDIOVASCULAR: Tachycardic rate and regular rhythm. No murmur appreciated. RESPIRATORY: Mild use of accessory muscles. Coarse basilar crackles with occasional wheezing. GASTROINTESTINAL: Abdomen soft, non-tender, nondistended. Bowel sounds x4. MUSCULOSKELETAL: Right thigh with obvious deformity, right lower leg shortened and internally rotated. Trace edema NEUROLOGICAL: Awake and alert, but appears sleepy. No focal neurological deficits. Moves upper and lower extremities spontaneously. Normal speech. PSYCHIATRIC: Appropriate mood and affect; insight and judgment fair to normal. A/P Assessment and Plan 07/30/16: Discussion with orthopedic in the morning, awaiting, pulmonary consult for clearance 07/31/16: Status post surgery, doing well, today she had hypertension with increased heart rate will give clonidine when necessary and at the rest are, creatinine improving and trending down 1.77-1.05 a/p: 66-year-old female with a past medical history of recently diagnosed lung cancer who presented with acute right leg pain Right upper mid shaft femur fracture: Hip and femur x-rays personally reviewed, mostly pathologic. Orthopedics was consulted . pt wants to proceed with surgery , Higher risk for surgery with respiratory status as below, awaiting pulmonary clearance prior to surgery. Pain control with oral and intravenous narcotics as needed. Acute respiratory failure , hypoxia likely due to pneumonia : With history of cancer and long bone fracture she is at high risk for embolic however that was ruled out with a low probability VQ scan per oncology recommendation, Oxygen saturation 90s on 4 L O2. ABG reviewed. Chest x-ray shows left basilar airspace disease and small left effusion. Chest CT without contrast reviewed as above, continue azithromycin and ceftriaxone. Scheduled as needed nebs. Supplemental oxygen as needed.Solu-Medrol iv pulmonary consulted and he cleared patient for surgery D/W Dr. Aneja Acute kidney injury possibly on underlying CKD, : Initially Creatinine 1.77, possibly related to the recent CTA of the chest done on May the hospital, no previous labs for comparison. IVF and follow-up BMP. Lung cancer: Appreciate oncologist, Dr. Zhu Consultation, and for palliative radiation and chemotherapy once addressed orthopedic issue Disposition: close monitoring in ICU for now. Juliana Mccarty MD Jul 31, 2016 15:50
[2016-07-31] MEDS ORDERED: LORazepam 0.5 MG TAB PO PRN (16:30)
--- NOTE | 2016-07-31 19:19 | HHI.PR ---
Subjective Remarks 66 YOWF with NSCLC, pathological right femur fracture Had Intrameddilary nail fixation Feels much better denies Pain No SOB Objective Vital Signs Vital Signs Date Time Temp Pulse Resp B/P Pulse Ox O2 Delivery O2 Flow Rate FiO2 07/31/16 18:00 112 07/31/16 16:00 97.9 102 21 131/74 100 07/31/16 16:00 102 07/31/16 14:00 102 07/31/16 12:00 118 07/31/16 12:00 98.4 118 37 116/67 98 07/31/16 10:00 125 07/31/16 08:36 100 Nasal Cannula 3.00 07/31/16 08:00 120 07/31/16 08:00 98.3 111 21 159/74 89 07/31/16 07:00 Nasal Cannula 4.00 07/31/16 06:00 115 07/31/16 04:00 97.9 117 21 147/99 98 07/31/16 04:00 115 07/31/16 02:00 109 07/31/16 00:00 97.8 109 23 134/74 96 07/31/16 00:00 101 07/31/16 00:00 96 Nasal Cannula 4.00 07/30/16 22:00 115 07/30/16 21:02 99 Nasal Cannula 3.00 07/30/16 20:44 15 07/30/16 20:00 97.8 119 20 131/76 96 07/30/16 20:00 111 I/O 07/30/16 07/30/16 07/30/16 07/31/16 07/31/16 07/31/16 07:00 15:00 23:00 07:00 15:00 23:00 Intake Total 2824 ml 906 ml 2121 ml 1243 ml 843 ml Output Total 1200 ml 650 ml 500 ml Balance 1624 ml 906 ml 1471 ml 743 ml 843 ml Intake Oral 800 ml 0 ml 400 ml 250 ml 360 ml IV Total 2024 ml 906 ml 721 ml 993 ml 483 ml Other 1000 ml Output Urine Total 1200 ml 600 ml 500 ml Estimated Blood Loss 50 ml # Voids 2 4 # Bowel Movements 0 0 0 0 Result Diagram: 07/30/16 0419 07/30/16 0419 Objective Remarks GENERAL: MBMN WF, NAD SKIN: Warm and dry. HEAD: Normocephalic. EYES: No scleral icterus. No injection or drainage. NECK: Supple, trachea midline. No JVD or lymphadenopathy. CARDIOVASCULAR: Regular rate and rhythm without murmurs, gallops, or rubs. RESPIRATORY: Breath sounds equal bilaterally. No accessory muscle use. GASTROINTESTINAL: Abdomen soft, non-tender, nondistended. MUSCULOSKELETAL: No cyanosis, or edema. BACK: Nontender without obvious deformity. No CVA tenderness. A/P Assessment and Plan COPD NSCLC Pathological Fracture right Femur PLAN: Aerosol nebs Supplement 02 cont Abx IV Solumedrol Anxious to go home. Collin Garcia MD Jul 31, 2016 19:19
[2016-07-31] MEDS: MULTIVITAMINS/MINERALS THERAPEUTIC TAB PO SCH (20:42)
[2016-07-31] MEDS: cefTRIAXone INJ 1,000 MG in SODIUM CHLORIDE 0.9% INJ 100 ML IV SCH (20:42)
[2016-07-31] MEDS: MAGNESIUM HYDROXIDE SUSP 30 ML CUP PO PRN (22:49)
[2016-08-01] VITALS (14 sets, daily range): BP systolic 134–145; BP diastolic 69–80; PULSE 87–114; RESP 22–28; TEMP 97.7–99; O2SAT 89–96
[2016-08-01] MEDS: PIPERACIL-TAZO 3.375 GM PREMIX 50 ML IV SCH ×4 (00:17→18:44)
[2016-08-01 05:06] LABS: HEMATOCRIT 27.8 % (35.0-46.0); MEAN CELL VOLUME 93.4 FL (80.0-100.0); MEAN CORPUSCULAR HEMOGLOBIN 30.7 PG (27.0-34.0); MEAN CORPUSCULAR HGB CONC 32.9 % (32.0-36.0); PLATELET COUNT 253 TH/MM3 (150-450); RED BLOOD COUNT 2.98 MIL/MM3 (4.00-5.30); RED CELL DISTRIBUTION WIDTH 17.2 % (11.6-17.2); REVIEW FLAG FINAL; WHITE BLOOD COUNT 8.8 TH/MM3 (4.0-11.0)
[2016-08-01] MEDS: AZITHROMYCIN INJ 500 MG in SODIUM CHLOR 0.9% 250 ML INJ 250 ML IV SCH (05:17)
[2016-08-01] MEDS: methylPREDNISolone SOD SUCC 40 MG/1 ML VIAL IV PUSH SCH ×3 (05:17→21:00)
[2016-08-01 05:41] LABS: BICARBONATE 25.8 MEQ/L (21.0-32.0)
[2016-08-01] MEDS: SODIUM CHLOR 0.9% 1000 ML INJ 1,000 ML IV SCH ×3 (07:33→15:37)
[2016-08-01] MEDS: SODIUM CHLORIDE 0.9% FLUSH 5 ML FLUSH IVF SCH ×3 (09:00→21:01)
[2016-08-01] MEDS: DOCUSATE SODIUM 100 MG CAP PO SCH ×3 (09:00→21:00)
[2016-08-01] MEDS: RESP: ALBUTEROL 2.5 MG/IPRATROPIUM 0.5 MG NEB (SCH) NEB ×3 (09:44→20:34)
[2016-08-01] MEDS: MULTIVITAMINS/MINERALS THERAPEUTIC TAB PO SCH ×2 (10:06→21:00)
[2016-08-01] MEDS: METOPROLOL TARTRATE 25 MG TAB PO SCH (10:06)
[2016-08-01] MEDS: MEGESTROL ACETATE 40 MG TAB PO SCH ×4 (10:06→21:00)
[2016-08-01] MEDS: MAGNESIUM HYDROXIDE SUSP 30 ML CUP PO PRN ×2 (10:08→16:23)
--- NOTE | 2016-08-01 10:21 | PD.ONC.PN ---
Subjective Subjective Remarks Afebrile overnight. Patient resting comfortably. No family members at bedside. she denies pain. Objective Data Date Time Temp Pulse Resp B/P Pulse Ox O2 Delivery O2 Flow Rate FiO2 08/01/16 09:46 91 Nasal Cannula 4.00 08/01/16 06:00 87 08/01/16 04:00 109 08/01/16 04:00 97.7 109 27 134/78 89 08/01/16 02:00 114 08/01/16 00:00 97.9 110 25 145/71 92 08/01/16 00:00 110 07/31/16 22:00 88 07/31/16 21:20 99 Nasal Cannula 3.00 07/31/16 20:00 98.3 128 27 121/81 98 07/31/16 20:00 128 07/31/16 19:00 100 Nasal Cannula 4.00 07/31/16 18:00 112 07/31/16 16:00 97.9 102 21 131/74 100 07/31/16 16:00 102 07/31/16 14:00 102 07/31/16 12:00 118 07/31/16 12:00 98.4 118 37 116/67 98 08/01/16 08/01/16 08/01/16 06:59 14:59 22:59 Intake Total 457 ml Balance 457 ml Result Diagram: 08/01/16 0426 08/01/16 0426 Laboratory Results Laboratory Tests Test 08/01/16 04:26 White Blood Count 8.8 TH/MM3 Red Blood Count 2.98 MIL/MM3 Hemoglobin 9.1 GM/DL Hematocrit 27.8 % Mean Corpuscular Volume 93.4 FL Mean Corpuscular Hemoglobin 30.7 PG Mean Corpuscular Hemoglobin 32.9 % Concent Red Cell Distribution Width 17.2 % Platelet Count 253 TH/MM3 Mean Platelet Volume 9.6 FL Sodium Level 149 MEQ/L Potassium Level 4.0 MEQ/L Chloride Level 114 MEQ/L Carbon Dioxide Level 25.8 MEQ/L Anion Gap 9 MEQ/L Blood Urea Nitrogen 20 MG/DL Creatinine 0.73 MG/DL Estimat Glomerular Filtration 80 ML/MIN Rate Random Glucose 112 MG/DL Calcium Level 8.2 MG/DL B-Type Natriuretic Peptide 451 PG/ML Culture Results Microbiology Date/Time Procedure Status Source Growth 07/29/16 16:30 Aerobic Blood Culture - Preliminary Resulted Blood Peripheral NO GROWTH IN 2 DAYS 07/29/16 16:30 Anaerobic Blood Culture - Preliminary Resulted Blood Peripheral NO GROWTH IN 2 DAYS 07/29/16 16:35 Aerobic Blood Culture - Preliminary Resulted Blood Peripheral NO GROWTH IN 2 DAYS 07/29/16 16:35 Anaerobic Blood Culture - Preliminary Resulted Blood Peripheral NO GROWTH IN 2 DAYS Administered Medications Medications (Trade) Dose Ordered Sig/Kenia Route PRN Reason Start Time Stop Time Status Last Admin Dose Admin Sodium Chloride (NS 1000 ml Inj) 1,000 ml @ 75 mls/hr [id number] IV 07/29/16 17:25 07/31/16 22:45 IV Flush (NS Flush) 2 ml BID IVF 07/29/16 21:00 07/30/16 20:41 Morphine Sulfate (Morphine Inj) 5 mg Q2H PRN IV PUSH BREAKTHROUGH PAIN 07/29/16 17:30 07/30/16 20:39 Ondansetron HCl (Zofran Inj) 4 mg Q6H PRN IVP NAUSEA OR VOMITING 07/29/16 17:30 07/30/16 20:39 Docusate Sodium (Colace) 100 mg BID PO 07/29/16 21:00 07/31/16 20:42 Magnesium Hydroxide 30 ml 30 ml Q6H PRN PO CONSTIPATION 07/29/16 17:30 08/01/16 10:08 Ceftriaxone Sodium/Sodium Chloride (Rocephin Inj/NS Inj) 100 ml @ 200 mls/hr DAILY@2000 IV 07/29/16 18:00 07/31/16 20:42 Methylprednisolone Sodium Succinate 40 mg 40 mg Q8HR IV PUSH 07/29/16 22:00 08/01/16 05:17 Piperacillin Sod/ Tazobactam Sod 50 ml @ 100 mls/hr Q6H IV 07/30/16 13:00 08/01/16 06:15 Sodium Chloride (NS 1000 ml Inj) 1,000 ml @ 100 mls/hr Q10H IV 07/30/16 15:33 07/31/16 11:25 Enoxaparin Sodium (Lovenox Inj) 40 mg Q24H SQ 07/31/16 15:00 08/09/16 15:01 07/31/16 14:36 Multivitamins/ Minerals Therapeutic (Theragran M Tab) 1 tab BID PO 07/31/16 21:00 09/29/16 20:59 08/01/16 10:06 Docusate Sodium 100 mg 100 mg BID PO 07/31/16 21:00 08/01/16 10:05 Azithromycin/ Sodium Chloride (Zithromax Inj/ NS 250 ml Inj) 250 ml @ 250 mls/hr Q24H IV 07/31/16 05:00 08/01/16 05:17 Megestrol Acetate (Megace) 40 mg QID PO 07/31/16 13:00 08/01/16 10:06 Metoprolol Tartrate (Lopressor) 25 mg Q12HR PO 07/31/16 12:00 08/01/16 10:06 Objective Remarks GENERAL: Weak elderly female, lying in bed in nad. SKIN: Warm and dry. HEAD: Normocephalic. EYES: No injection or drainage. NECK: Supple, trachea midline. CARDIOVASCULAR: +S1/S2 RESPIRATORY: diminished at bases. anterior spence occasional rhonchi. on 4L O2 GASTROINTESTINAL: Abdomen soft, non-tender, nondistended. EXTREMITIES: No cyanosis. NEUROLOGICAL: awake and alert, normal speech. no obvious focal deficit Assessment/Plan Problem List: (1) Metastatic lung carcinoma Status: Acute Plan: 08/01/16: patient seen by Dr. Tran last night, plans for XRT to femur prior to brain XRT. possible simulation today. --Workup (done at [facility]) CT C/A/P showed left upper lobe lung mass with left SC LAD + liver lesion CT brain showed 2 masses pathology of supraclav. mass showed adenocarcinoma, NSCLC --XRT to start Sunday --CT chest ([facility] [place]showed multifocal air space consolidation +small left pleural effusion and small pericardial effusion. (2) Femoral shaft fracture Status: Acute Plan: --s/p ORIF with intramedullary nail placement on 07/30/16. --will require XRT to femur (3) DVT, bilateral lower limbs Status: Acute Plan: --s/p IVC filter placement (4) Hypercalcemia of malignancy Status: Acute Plan: --given Aredia on 07/29/16 Assessment 66y/o with recently diagnosed metastatic NSCLC with brain mets, admitted with pathologic fracture to right femur. h/o COPD, Chronic back pain. DVT + IVC filter. Attending Statement no new c/o XRT to start soon by Dr Tran. Femur Fracture path is pending. will follow The exam, history, and the medical decision-making described in the above note were completed with the assistance of the mid-level provider. I reviewed and agree with the findings presented. I attest that I had a [id number] encounter with the patient on the same day, and personally performed and documented my assessment and findings in the medical record. Problem Qualifiers (1) Femoral shaft fracture: Qualified Code: S72.391A - Other closed fracture of shaft of right femur, initial encounter Mercedez Benitez Aug 01, 2016 10:21 Kendal Zhu MD Aug 01, 2016 19:22
[2016-08-01] MEDS: ENOXAPARIN SODIUM 40 MG/0.4 ML SYRINGE SQ SCH (14:08)
--- NOTE | 2016-08-01 16:28 | HHI.HCPN ---
Reason for visit a. To assist with evaluation and management of symptoms including: cough, dyspnea, anxiety, constipation. b. To assist medical decision maker(s) with: better understanding of current medical conditions; weighing benefits/burdens of medical treatment options; making medical treatment decisions. . Subjective/Interval History Patient seen and examined in ICU. AnanthJoce thomason at bedside. Patient want for radiation simulation this morning. She denies pain. Intermittent dyspnea and anxiety. She feels "tired" today.She remains on oxygen via NC> Vital signs stable. No recorded BM since admission. Had Colace this morning, will likely need to use PRN laxative. Encouraged use. Labs stable, except BNP increased to 451. Blood cultures at 3 days. Family found Living Will and Designation of Health Care surrogate which names her significant other (now ) as primary HCS and ananthkatelinFaina as alternate HCS. She wishes to keep Joce as her health care surrogate should she lose capacity. Copy on chart, sent to HIM to be scanned into EMR. Patient hopes to return shea after DC, however family indicates she DOES NOT have someone who can assist her with the level of care she currently needs. . Family/friend interactions See interval note. Advance Directives Advance Directive Specifics Significant change in goals: NO CODE. Goals remain aggressive at this time short of NO CODE. She wants to start radiation as planned. . Objective Vital Signs Date Time Temp Pulse Resp B/P Pulse Ox O2 Delivery O2 Flow Rate FiO2 08/01/16 09:46 91 Nasal Cannula 4.00 08/01/16 08:00 96 Nasal Cannula 4.00 Humidified 08/01/16 06:00 87 08/01/16 04:00 109 08/01/16 04:00 97.7 109 27 134/78 89 08/01/16 02:00 114 08/01/16 00:00 97.9 110 25 145/71 92 08/01/16 00:00 110 07/31/16 22:00 88 07/31/16 21:20 99 Nasal Cannula 3.00 07/31/16 20:00 98.3 128 27 121/81 98 07/31/16 20:00 128 07/31/16 19:00 100 Nasal Cannula 4.00 07/31/16 18:00 112 Intake & Output 08/01/16 08/01/16 07:00 19:00 Intake Total 874 ml Balance 874 ml Intake Oral 360 ml IV Total 514 ml # Voids 6 # Bowel Movements 0 Physical Exam CONSTITUTIONAL/GENERAL: This is a thin patient who appears older than her actual age, TUBES/LINES/DRAINS: Oxygen via NC, PIV. SKIN: No jaundice, rashes, or lesions. Ecchymoses on upper extremities. Dressing right hip, not visualized sitting in stretcher chair. Skin temperature appropriate. Not diaphoretic. EYES: Pupils equal and round and reactive. Extraocular motions intact. No scleral icterus. No injection or drainage. Fundi not examined. ENT: Hearing grossly normal. Nose without bleeding or purulent drainage. Throat without visible erythema, exudates, masses, or lesions. Voice weak and soft. CARDIOVASCULAR: Regular rate and rhythm without murmurs, gallops, or rubs. No JVD. Peripheral pulses symmetric. RESPIRATORY/CHEST: Symmetric, mildly labored respirations at rest. Breath sounds course and diminished bilaterally. GASTROINTESTINAL: Abdomen soft, non-tender, nondistended. No guarding. Bowel sounds present. GENITOURINARY: Without palpable bladder distension. Schneider catheter in place. MUSCULOSKELETAL: Extremities with trace edema right. No mottling or clubbing. NEUROLOGICAL: Awake and alert. Motor and sensory grossly within normal limits. Follows commands. Cognitively sharp. Moves all extremities. PSYCHIATRIC: Smiling, makes intermittent jokes. Self reports anxiety with dyspnea or when laying flat. . Diagnostic Tests Laboratory Laboratory Tests Test 07/29/16 07/29/16 07/30/16 07/30/16 17:22 22:25 04:19 10:51 Blood Gas Puncture Site RT RADIAL RT RADIAL Blood Gas Patient Temperature 98.6 98.6 Blood Gas HCO3 20 mmol/L 20 mmol/L (22-26) (22-26) Blood Gas Base Excess -4.9 mmol/L -4.2 mmol/L (-2-2) (-2-2) Blood Gas Oxygen Saturation 93 % (90-100) 91 % (90-100) Arterial Blood pH 7.32 7.39 (7.380-7.420) (7.380-7.420) Arterial Blood Partial 40 mmHg (38-42) 33 mmHg (38-42) Pressure CO2 Arterial Blood Partial 89 mmHG 73 mmHg Pressure O2 (61-120) (61-120) Arterial Blood Oxygen Content 13.0 Vol % 11.7 Vol % (12.0-20.0) (12.0-20.0) Arterial Blood 2.2 % (0-4) 1.7 % (0-4) Carboxyhemoglobin Arterial Blood Methemoglobin 1.4 % (0-2) 0.8 % (0-2) Blood Gas Hemoglobin 9.9 G/DL 9.0 G/DL (12.0-16.0) (12.0-16.0) Oxygen Delivery Device NASAL CANNULA NASAL CANNULA Blood Gas Liter Flow 4 L/M 2 L/M Nasal Screen MRSA (PCR) NEGATIVE (NEGATIVE) White Blood Count 8.0 TH/MM3 (4.0-11.0) Red Blood Count 3.06 MIL/MM3 (4.00-5.30) Hemoglobin 9.3 GM/DL (11.6-15.3) Hematocrit 28.9 % (35.0-46.0) Mean Corpuscular Volume 94.3 FL (80.0-100.0) Mean Corpuscular Hemoglobin 30.3 PG (27.0-34.0) Mean Corpuscular Hemoglobin 32.1 % Concent (32.0-36.0) Red Cell Distribution Width 17.5 % (11.6-17.2) Platelet Count 234 TH/MM3 (150-450) Mean Platelet Volume 9.9 FL (7.0-11.0) Sodium Level 146 MEQ/L (136-145) Potassium Level 3.9 MEQ/L (3.5-5.1) Chloride Level 112 MEQ/L (98-107) Carbon Dioxide Level 24.2 MEQ/L (21.0-32.0) Anion Gap 10 MEQ/L (5-15) Blood Urea Nitrogen 39 MG/DL (7-18) Creatinine 1.05 MG/DL (0.50-1.00) Estimat Glomerular Filtration 53 ML/MIN (>89) Rate Random Glucose 121 MG/DL (74-106) Calcium Level 8.8 MG/DL (8.5-10.1) Total Bilirubin 0.3 MG/DL (0.2-1.0) Aspartate Amino Transf 16 U/L (15-37) (AST/SGOT) Alanine Aminotransferase 12 U/L (10-53) (ALT/SGPT) Alkaline Phosphatase 102 U/L (45-117) Total Protein 6.1 GM/DL (6.4-8.2) Albumin 2.3 GM/DL (3.4-5.0) Test 07/30/16 08/01/16 11:25 04:26 Blood Type A POSITIVE Antibody Screen NEGATIVE White Blood Count 8.8 TH/MM3 (4.0-11.0) Red Blood Count 2.98 MIL/MM3 (4.00-5.30) Hemoglobin 9.1 GM/DL (11.6-15.3) Hematocrit 27.8 % (35.0-46.0) Mean Corpuscular Volume 93.4 FL (80.0-100.0) Mean Corpuscular Hemoglobin 30.7 PG (27.0-34.0) Mean Corpuscular Hemoglobin 32.9 % Concent (32.0-36.0) Red Cell Distribution Width 17.2 % (11.6-17.2) Platelet Count 253 TH/MM3 (150-450) Mean Platelet Volume 9.6 FL (7.0-11.0) Sodium Level 149 MEQ/L (136-145) Potassium Level 4.0 MEQ/L (3.5-5.1) Chloride Level 114 MEQ/L (98-107) Carbon Dioxide Level 25.8 MEQ/L (21.0-32.0) Anion Gap 9 MEQ/L (5-15) Blood Urea Nitrogen 20 MG/DL (7-18) Creatinine 0.73 MG/DL (0.50-1.00) Estimat Glomerular Filtration 80 ML/MIN (>89) Rate Random Glucose 112 MG/DL (74-106) Calcium Level 8.2 MG/DL (8.5-10.1) B-Type Natriuretic Peptide 451 PG/ML (0-100) Result Diagram: 08/01/16 0426 08/01/16 0426 Microbiology Microbiology Date/Time Procedure Status Source Growth 07/29/16 16:30 Aerobic Blood Culture - Preliminary Resulted Blood Peripheral NO GROWTH IN 3 DAYS 07/29/16 16:30 Anaerobic Blood Culture - Preliminary Resulted Blood Peripheral NO GROWTH IN 3 DAYS 07/29/16 16:35 Aerobic Blood Culture - Preliminary Resulted Blood Peripheral NO GROWTH IN 3 DAYS 07/29/16 16:35 Anaerobic Blood Culture - Preliminary Resulted Blood Peripheral NO GROWTH IN 3 DAYS Imaging Last Impressions Femur X-Ray 07/30/16 0000 Signed Impressions: Service Date/Time: Saturday, July 30, 2016 14:37 - CONCLUSION: 1. Osbaldo fixation proximal right femur fracture. Rangel Haji MD Chest X-Ray 07/29/16 1435 Signed Impressions: Service Date/Time: Friday, July 29, 2016 15:32 - CONCLUSION: 1. Left basilar airspace disease and small left effusion. Cardiomegaly. Rangel Haji MD Lung Scan-V Nuclear Medicine 07/29/16 0000 Signed Impressions: Service Date/Time: Friday, July 29, 2016 19:40 - CONCLUSION: 1. Low probability for pulmonary bolus. Rangel Haji MD Hip X-Ray 07/29/16 0000 Signed Impressions: Service Date/Time: Friday, July 29, 2016 15:24 - CONCLUSION: Fracture proximal shaft right femur with apex lateral angulation. Questionable pathologic fracture. Bone scan could be performed for further evaluation. Rangel Haij MD Chest CT 07/29/16 0000 Signed Impressions: Service Date/Time: Friday, July 29, 2016 17:34 - CONCLUSION: 1. Multifocal airspace consolidation the lungs most notable in the left lower lobe and anterior segment left upper lobe loss and subsegmental airspace disease in the other lobes of the lung. There is an associated small left effusion and small pericardial effusion. Findings are most characteristic of pneumonia or aspiration. There is also mild emphysema and mild mediastinal adenopathy. Right [id number] tip in superior vena cava. 2. Moderate compression deformity in the lower thoracic spine, probably old. Rangel Haji MD Assessment and Plan Disease Oriented Problem List: (1) Femoral shaft fracture (2) Hypercalcemia of malignancy (3) DVT, bilateral lower limbs (4) Metastatic lung carcinoma Symptom Scale: (1) Dyspnea 0-10 Scale: Unable to quantify (2) Cough 0-10 Scale: Unable to quantify (3) Anxiety 0-10 Scale: Unable to quantify Comment: increased with dyspnea. (4) Constipation 0-10 Scale: Unable to quantify Comment: LBM prior to admission. Pertinent Non-Medical Issues Psychosocial: Single. Supported by her friends, cousins and 2 stepsons (who live out of town). Spiritual: None. Legal: No written advanced directives. She is consider who she would want to speak for her, willing to implement HCS after she can talk to those she is considering. Ethical issues impacting care: No known concerns at this time. . Important Contacts * kimberley Ugarte-son: [phone] * adonis Ruff: [phone] * Cecelia Chichester: [phone] . Prognosis Overall prognosis poor given poor functional and nutritional status, advanced disease mets lung to liver, adenopathy, brain and bone. . Code Status: No Code Plan * Family found Living Will and Designation of Health Care surrogate which names her significant other (now ) as primary HCS and Faina lamb as alternate HCS. She wishes to keep Joce as her health care surrogate should she lose capacity. Copy on chart, sent to HIM to be scanned into EMR. * NO CODE per pt wishes. FL Do Not Resuscitate Order signed by patient, original on chart, copy to [facility] and sent to HIM to be scanned into EMR. * Patient hopes to return home after DC, however family indicates she DOES NOT have someone who can assist her with the level of care she currently needs. * SYMPTOMS: Cough: secondary to COPD and lung cancer. Would consider Edwina Mckeon. Constipation:Has bowel protocol in place. Will monitor. Encouraged PRN med use. Dyspnea: secondary to pneumonia, lung cancer and COPD. Has Oxygen and PRN Morphine. Anxiety: Added Lorazepam 0.5mg PO every 4 hours PRN anxiety. Will likely benefit from pre-meds (lorazepam) prior to XRT due to anxiety and dyspnea when laying flat. Dr. Tran aware. * Palliative care will continue to follow to assist with symptom management and further clarifications of treatment goals. . Attestation To help prompt me to consider important information that might be impacting today's encounter and assessment, information from prior notes written by myself or my colleagues may have been "brought forward" into today's note. My signature on this note, however, is an attestation that I personally performed the exam, history, and/or decision-making noted today, and, unless otherwise indicated, the interactions with patient, family, and staff as well as the review of records all occurred today. I also attest that the listed assessment and stated plan reflect my best clinical judgment today based on the combination of historical information, prior notes, and today's exam/ interactions. When time spent is documented, it refers only to time spent today by the signer, or if indicated, combined time spent today by collaborating physician/nurse practitioner. AMRITA RAVI Aug 01, 2016 16:28
--- NOTE | 2016-08-01 16:31 | PD.ORT.PN ---
Subjective Subjective Remarks feels better since having the surgery Objective Vitals Vital Signs Date Time Temp Pulse Resp B/P Pulse Ox O2 Delivery O2 Flow Rate FiO2 08/01/16 09:46 91 Nasal Cannula 4.00 08/01/16 08:00 96 Nasal Cannula 4.00 Humidified 08/01/16 06:00 87 08/01/16 04:00 109 08/01/16 04:00 97.7 109 27 134/78 89 08/01/16 02:00 114 08/01/16 00:00 97.9 110 25 145/71 92 08/01/16 00:00 110 07/31/16 22:00 88 07/31/16 21:20 99 Nasal Cannula 3.00 07/31/16 20:00 98.3 128 27 121/81 98 07/31/16 20:00 128 07/31/16 19:00 100 Nasal Cannula 4.00 07/31/16 18:00 112 I/O 07/31/16 07/31/16 07/31/16 08/01/16 08/01/16 08/01/16 07:00 15:00 23:00 07:00 15:00 23:00 Intake Total 1243 ml 843 ml 417 ml 457 ml Output Total 500 ml Balance 743 ml 843 ml 417 ml 457 ml Intake Oral 250 ml 360 ml 240 ml 120 ml IV Total 993 ml 483 ml 177 ml 337 ml Output Urine Total 500 ml # Voids 4 3 3 # Bowel Movements 0 0 0 0 Result Diagram: 08/01/16 0426 08/01/16 0426 Procedures Right femur pathologic fracture stabilization with intramedullary nail Objective Remarks O2NC, coughing The patient's incisions are C/D/I. EHL/TA/G are intact. No calf pain or tenderness. Mild swelling to the right hip. + SILT. BCR Assessment & Plan Assessment and Plan POD #2: Right femur pathologic fracture stabilization with intramedullary nail 1. NWB RLE 2. Lovenox for DVT prophylaxis per medical. Patient has history of DVT with IVC filter 3. Ice to the right thigh PRN 4. Patient will likely require radiation to the right femur once incisions are healed 5. We will continue to follow the pathology report from intramedulary reamings. Brennan Bishop MD Aug 01, 2016 16:31
--- NOTE | 2016-08-01 18:34 | HHI.PR ---
Subjective Remarks Laying comfortably in bed however patient is on 4 L of nasal cannula oxygen She is off iv fluid, I discussed with the nurse extensively, will check a stat chest x-ray rule out lung congestion Objective Vitals Vital Signs Date Time Temp Pulse Resp B/P Pulse Ox O2 Delivery O2 Flow Rate FiO2 08/01/16 18:00 110 08/01/16 16:00 98.1 100 23 136/69 92 08/01/16 16:00 100 08/01/16 14:00 95 08/01/16 13:45 99.0 93 28 140/71 93 08/01/16 10:00 109 08/01/16 09:46 91 Nasal Cannula 4.00 08/01/16 08:00 96 Nasal Cannula 4.00 Humidified 08/01/16 08:00 98.1 114 25 140/80 96 08/01/16 08:00 114 08/01/16 06:00 87 08/01/16 04:00 109 08/01/16 04:00 97.7 109 27 134/78 89 08/01/16 02:00 114 08/01/16 00:00 97.9 110 25 145/71 92 08/01/16 00:00 110 07/31/16 22:00 88 07/31/16 21:20 99 Nasal Cannula 3.00 07/31/16 20:00 98.3 128 27 121/81 98 07/31/16 20:00 128 07/31/16 19:00 100 Nasal Cannula 4.00 I/O 07/31/16 07/31/16 07/31/16 08/01/16 08/01/16 08/01/16 07:00 15:00 23:00 07:00 15:00 23:00 Intake Total 1243 ml 843 ml 417 ml 457 ml 148 ml Output Total 500 ml Balance 743 ml 843 ml 417 ml 457 ml 148 ml Intake Oral 250 ml 360 ml 240 ml 120 ml 60 ml IV Total 993 ml 483 ml 177 ml 337 ml 88 ml Output Urine Total 500 ml # Voids 4 3 3 5 1 # Bowel Movements 0 0 0 0 0 1 Result Diagram: 08/01/166 08/01/166 Objective Remarks GENERAL: Well-developed cachectic. In no distress. Hard of hearing and hoarse voice. SKIN: Warm and dry. No lesions noted. HEENT: Normocephalic. Pupils equal and round. Mucous membranes pink and moist. JVD noted. CARDIOVASCULAR: Tachycardic rate and regular rhythm. No murmur appreciated. RESPIRATORY: Positive Rales scattered bilaterally GASTROINTESTINAL: Abdomen soft, non-tender, nondistended. Bowel sounds x4. MUSCULOSKELETAL: No edema in bilateral extremity, positive pedal pulses NEUROLOGICAL: Awake and alert,. No focal neurological deficits. Moves upper and lower extremities spontaneously. Normal speech. PSYCHIATRIC: Appropriate mood and affect; insight and judgment fair to normal. A/P Assessment and Plan 07/30/16: Discussion with orthopedic in the morning, awaiting, pulmonary consult for clearance 07/31/16: Status post surgery, doing well, today she had hypertension with increased heart rate will give clonidine when necessary and at the rest are, creatinine improving and trending down 1.77-1.05 08/01/16: Heart rate is better but still around 100, pressure stable, will monitor and will increase Lopressor to 50 mg twice a day, continuing effort for discharge to rehabilitation, will check BMP and BNP in a.m., will check stat chest x-ray rule out a moderate congestion, discussed with the nurse, will give iv Lasix 1 dose of chest x-ray showed pulmonary congestion a/p: 66-year-old female with a past medical history of recently diagnosed lung cancer who presented with acute right leg pain Right upper mid shaft femur fracture: Hip and femur x-rays personally reviewed, mostly pathologic. Orthopedics was consulted . pt wants to proceed with surgery , Higher risk for surgery with respiratory status as below, awaiting pulmonary clearance prior to surgery. Pain control with oral and intravenous narcotics as needed. Acute respiratory failure , hypoxia likely due to pneumonia : With history of cancer and long bone fracture she is at high risk for embolic however that was ruled out with a low probability VQ scan per oncology recommendation, Oxygen saturation 90s on 4 L O2. ABG reviewed. Chest x-ray shows left basilar airspace disease and small left effusion. Chest CT without contrast reviewed as above, continue azithromycin and ceftriaxone. Scheduled as needed nebs. Supplemental oxygen as needed.Solu-Medrol iv pulmonary consulted and he cleared patient for surgery D/W Dr. Garcia Acute kidney injury possibly on underlying CKD, : Initially Creatinine 1.77, possibly related to the recent CTA of the chest done on May the hospital, no previous labs for comparison. IVF and follow-up BMP. Lung cancer: Appreciate oncologist, Dr. Zhu Consultation, and for palliative radiation and chemotherapy once addressed orthopedic issue Disposition: close monitoring in ICU for now. Discharge Planning To rehabilitation possibly name and if stable Juliana Mccarty MD Aug 01, 2016 18:34
[2016-08-01] MEDS: cefTRIAXone INJ 1,000 MG in SODIUM CHLORIDE 0.9% INJ 100 ML IV SCH (19:46)
--- NOTE | 2016-08-01 19:57 | RADRPT ---
EXAM DATE/TIME: 08/01/2016 19:14 [place] COMPARISON: CHEST SINGLE AP, July 29, 2016, 15:32. INDICATIONS : Short of breath. MEDICAL HISTORY : None. SURGICAL HISTORY : None. ENCOUNTER: Initial ACUITY: 4 - 6 days PAIN SCORE: 0/10 LOCATION: Bilateral chest FINDINGS: A single view of the chest demonstrates the [id number] in superior vena cava. There is dense conso lidation in the left lung inferiorly, increased from July 29. Minimal subsegmental basilar opacity on the right thorax. Left effusion likely. CONCLUSION: 1. Increase in left basilar airspace disease since July 29 with probable left effusion. Infuse-a-P ort in superior vena cava. Inferior vena cava filter. Compression deformities in the thoracic spine. Rangel Haji MD on August 01, 2016 at 19:52 Board Certified Radiologist. This report was verified electronically.
[2016-08-01] MEDS ORDERED: FUROSEMIDE 40 MG/4 ML VIAL IV PUSH PRN (20:00)
--- NOTE | 2016-08-01 20:08 | HHI.PR ---
Subjective Remarks 66 YOWF with NSCLC, pathological right femur fracture Had Intrameddilary nail fixation Feels much better denies Pain Mild congestion in chest but denies sob Objective Vital Signs Vital Signs Date Time Temp Pulse Resp B/P Pulse Ox O2 Delivery O2 Flow Rate FiO2 08/01/16 18:00 110 08/01/16 16:00 98.1 100 23 136/69 92 08/01/16 16:00 100 08/01/16 14:00 95 08/01/16 13:45 99.0 93 28 140/71 93 08/01/16 10:00 109 08/01/16 09:46 91 Nasal Cannula 4.00 08/01/16 08:00 96 Nasal Cannula 4.00 Humidified 08/01/16 08:00 98.1 114 25 140/80 96 08/01/16 08:00 114 08/01/16 06:00 87 08/01/16 04:00 109 08/01/16 04:00 97.7 109 27 134/78 89 08/01/16 02:00 114 08/01/16 00:00 97.9 110 25 145/71 92 08/01/16 00:00 110 07/31/16 22:00 88 07/31/16 21:20 99 Nasal Cannula 3.00 I/O 07/31/16 07/31/16 07/31/16 08/01/16 08/01/16 08/01/16 07:00 15:00 23:00 07:00 15:00 23:00 Intake Total 1243 ml 843 ml 417 ml 457 ml 148 ml Output Total 500 ml Balance 743 ml 843 ml 417 ml 457 ml 148 ml Intake Oral 250 ml 360 ml 240 ml 120 ml 60 ml IV Total 993 ml 483 ml 177 ml 337 ml 88 ml Output Urine Total 500 ml # Voids 4 3 3 5 2 # Bowel Movements 0 0 0 0 0 1 Result Diagram: 08/01/1642508/01/16425 Objective Remarks GENERAL: MBMN WF, NAD SKIN: Warm and dry. HEAD: Normocephalic. EYES: No scleral icterus. No injection or drainage. NECK: Supple, trachea midline. No JVD or lymphadenopathy. CARDIOVASCULAR: Regular rate and rhythm without murmurs, gallops, or rubs. RESPIRATORY: Breath sounds equal bilaterally. No accessory muscle use. GASTROINTESTINAL: Abdomen soft, non-tender, nondistended. MUSCULOSKELETAL: No cyanosis, or edema. BACK: Nontender without obvious deformity. No CVA tenderness. A/P Assessment and Plan COPD NSCLC Pathological Fracture right Femur PLAN: Aerosol nebs Supplement 02 cont Abx IV Solumedrol Collin Garcia MD Aug 01, 2016 20:08
[2016-08-01] MEDS: METOPROLOL TARTRATE 50 MG TAB PO SCH (21:00)
[2016-08-02] VITALS (12 sets, daily range): BP systolic 112–133; BP diastolic 61–86; PULSE 86–110; RESP 20–26; TEMP 97.6–99.1; O2SAT 93–98
[2016-08-02] MEDS: PIPERACIL-TAZO 3.375 GM PREMIX 50 ML IV SCH ×4 (01:31→19:00)
[2016-08-02] MEDS: AZITHROMYCIN INJ 500 MG in SODIUM CHLOR 0.9% 250 ML INJ 250 ML IV SCH (05:02)
[2016-08-02] MEDS: methylPREDNISolone SOD SUCC 40 MG/1 ML VIAL IV PUSH SCH (05:02)
[2016-08-02] MEDS: MORPHINE SULFATE 8 MG/ML INJ IV PUSH PRN (05:03)
[2016-08-02 05:43] LABS: HEMATOCRIT 32.8 % (35.0-46.0); MEAN CELL VOLUME 93.7 FL (80.0-100.0); MEAN CORPUSCULAR HEMOGLOBIN 30.2 PG (27.0-34.0); MEAN CORPUSCULAR HGB CONC 32.2 % (32.0-36.0); PLATELET COUNT 349 TH/MM3 (150-450); RED CELL DISTRIBUTION WIDTH 17.1 % (11.6-17.2); REVIEW FLAG FINAL; WHITE BLOOD COUNT 17.5 TH/MM3 (4.0-11.0)
[2016-08-02 06:13] LABS: BICARBONATE 32.1 MEQ/L (21.0-32.0); POTASSIUM 3.1 MEQ/L (3.5-5.1)
[2016-08-02] MEDS: RESP: ALBUTEROL 2.5 MG/IPRATROPIUM 0.5 MG NEB (SCH) NEB ×3 (08:07→18:55)
[2016-08-02] MEDS: DOCUSATE SODIUM 100 MG CAP PO SCH (08:59)
[2016-08-02] MEDS: MULTIVITAMINS/MINERALS THERAPEUTIC TAB PO SCH (08:59)
[2016-08-02] MEDS: METOPROLOL TARTRATE 50 MG TAB PO SCH (08:59)
[2016-08-02] MEDS: SODIUM CHLORIDE 0.9% FLUSH 5 ML FLUSH IVF SCH (08:59)
[2016-08-02] MEDS: MEGESTROL ACETATE 40 MG TAB PO SCH ×3 (09:00→18:00)
[2016-08-02] MEDS ORDERED: POTASSIUM CHLOR 20 MEQ PREMIX 100 ML IV SCH (10:00)
[2016-08-02] MEDS ORDERED: VANCOMYCIN INJ 850 MG in SODIUM CHLOR 0.9% 250 ML INJ 250 ML IV SCH (10:30)
[2016-08-02] MEDS ORDERED: Vancomycin Consult Pharmacy 1 EA OTHER SCH (10:30)
[2016-08-02] MEDS: POTASSIUM CHLORIDE 10 MEQ CONTROLLED RELEASE TAB PO SCH ×3 (10:55→13:40)
[2016-08-02] MEDS ORDERED: VANCOMYCIN 1,000 MG/NS 250 ML IV SCH ×4 (11:00→12:00)
[2016-08-02] MEDS ORDERED: LEVOFLOXACIN 750 MG PREMIX INJ 150 ML IV SCH (11:00)
--- NOTE | 2016-08-02 11:10 | RF ---
cc: DANITA TRAN MD, ABDUL J. M.D. F o l l o w u p R e p o r t DATE OF SERVICE: 07/31/2016 AGE: 66 SEX: F Ms. Mayer is a 66-year-old female who underwent recent surgery for a pathological fracture of her right femur. Images reviewed. She has a recent chest CT as well demonstrating evidence of pneumonia. She has a history of cancer, as well, likely a pathologic fracture. We had initially seen her as an inpatient at [facility]. She has CT images of the brain suspicious for brain metastases as well. We discussed treatment of the whole brain. We discussed treatment of the right femur, as well as pelvis. She was unable to follow up with us as an outpatient and has had an appointment to see us tomorrow, however, she is an inpatient today. We discussed palliative radiation therapy of the right femur. We discussed whole brain radiation therapy. We will schedule her for a CT simulation first of the right femur pelvis area. PAST MEDICAL AND SURGICAL HISTORY 1. COPD 2. Weight loss 3. Back pain 4. Hypercholesterolemia 5. DVT 6. Stage IV [id number] lung cancer. 7. Appendectomy 8. Breast biopsy 9. No prior radiation therapy. MEDICATIONS See electronic medical record. FAMILY HISTORY Noncontributory SOCIAL HISTORY She smoked one and a half packs of cigarettes a day for a decade and quit 10 years ago. PHYSICAL EXAMINATION GENERAL: This is a pleasant female thin-appearing. VITAL SIGNS: Noted in the inpatient room. LUNGS: No use of accessory muscles. Equal at rest. NECK: No significant adenopathy. EXTREMITIES: No clubbing, cyanosis or edema. SKIN: No percutaneous rash. NEUROLOGIC: Oriented. Able to follow two steps commands. PLAN/RECOMMENDATIONS We discussed palliative radiation therapy to the right femur. We discussed palliative whole brain radiation therapy. We discussed observation. We discussed palliative care. She is interested in proceeding with treatment. We will schedule her for CT simulation. We discussed if she tolerates this, consider whole brain radiation therapy as well. I discussed the case with Marilyn Benitez as well today. NOTE: She ultimately chose to pursue hospice care. Danita Tran MD Radiation Oncologist AMADOU/IVAN /3:21 PM /10:48 AM ELICIA
[2016-08-02 11:24] LABS: BACTERIA, URINE RARE /hpf; BLOOD, URINE SMALL (NEG); GLUCOSE,URINE TRACE mg/dL (NEG); KETONE, URINE 10 mg/dL (NEG); MUCUS URINE FEW /lpf (OCC); NITRITE,URINE NEG (NEG); PH, URINE 5.5 (5.0-8.5); SQUAMOUS EPITHELIAL CELL URINE <1 /hpf (0-5); URINE COLOR YELLOW (YELLW/STRAW)
[2016-08-02 11:26] LABS: COMMENT (UR) CULT NOT INDICATED; CULTURE IF INDICATED CULT NOT INDICATED
--- NOTE | 2016-08-02 11:42 | PD.ONC.PN ---
Subjective Subjective Remarks Afebrile overnight. Patient asking to drink some water. Per nurse, she has been having trouble swallowing and has been having intermittent periods of confusion and was placed in two point restraints after she tried to take her IV's out. Objective Data Date Time Temp Pulse Resp B/P Pulse Ox O2 Delivery O2 Flow Rate FiO2 08/02/16 10:00 90 08/02/16 08:08 94 Nasal Cannula 3.00 08/02/16 08:00 96 08/02/16 08:00 98.0 96 23 112/61 98 08/02/16 07:00 95 Nasal Cannula 4.00 Humidified 08/02/16 06:00 110 08/02/16 04:00 97.6 93 20 122/86 94 08/02/16 04:00 93 08/02/16 02:00 96 08/02/16 00:00 88 08/02/16 00:00 98.4 88 21 133/70 93 08/01/16 22:00 89 08/01/16 20:35 96 Nasal Cannula 3.00 08/01/16 20:00 97 08/01/16 20:00 98.2 97 22 141/76 93 08/01/16 19:00 93 Nasal Cannula 4.00 Humidified 08/01/16 18:00 110 08/01/16 16:00 98.1 100 23 136/69 92 08/01/16 16:00 100 08/01/16 14:00 95 08/01/16 13:45 99.0 93 28 140/71 93 08/02/16 08/02/16 08/02/16 07:00 15:00 23:00 Intake Total 270 ml Balance 270 ml Result Diagram: 08/02/16 0510 08/02/16 0510 Laboratory Results Laboratory Tests Test 08/02/16 08/02/16 05:10 10:50 White Blood Count 17.5 TH/MM3 Red Blood Count 3.50 MIL/MM3 Hemoglobin 10.5 GM/DL Hematocrit 32.8 % Mean Corpuscular Volume 93.7 FL Mean Corpuscular Hemoglobin 30.2 PG Mean Corpuscular Hemoglobin 32.2 % Concent Red Cell Distribution Width 17.1 % Platelet Count 349 TH/MM3 Mean Platelet Volume 10.0 FL Sodium Level 147 MEQ/L Potassium Level 3.1 MEQ/L Chloride Level 106 MEQ/L Carbon Dioxide Level 32.1 MEQ/L Anion Gap 9 MEQ/L Blood Urea Nitrogen 17 MG/DL Creatinine 0.72 MG/DL Estimat Glomerular Filtration 82 ML/MIN Rate Random Glucose 121 MG/DL Calcium Level 8.0 MG/DL B-Type Natriuretic Peptide 546 PG/ML Urine Color YELLOW Urine Turbidity CLEAR Urine pH 5.5 Urine Specific [place] 1.025 Urine Protein TRACE mg/dL Urine Glucose (UA) TRACE mg/dL Urine Ketones 10 mg/dL Urine Occult Blood SMALL Urine Nitrite NEG Urine Bilirubin NEG Urine Urobilinogen LESS THAN 2.0 MG/DL Urine Leukocyte Esterase TRACE Urine RBC 8 /hpf Urine WBC 3 /hpf Urine Squamous Epithelial <1 /hpf Cells Urine Bacteria RARE /hpf Urine Mucus FEW /lpf Urine Yeast (Budding) RARE Microscopic Urinalysis Comment CULT NOT INDICATED Administered Medications Medications (Trade) Dose Ordered Sig/Kenia Route PRN Reason Start Time Stop Time Status Last Admin Dose Admin Morphine Sulfate (Morphine Inj) 5 mg Q2H PRN IV PUSH BREAKTHROUGH PAIN 07/29/16 17:30 08/02/16 05:03 Ondansetron HCl 4 mg 4 mg Q6H PRN IVP NAUSEA OR VOMITING 07/29/16 17:30 07/30/16 20:39 Ceftriaxone Sodium 1000 mg/ Sodium Chloride 100 ml @ 200 mls/hr DAILY@2000 IV 07/29/16 18:00 08/01/16 19:46 Piperacillin Sod/ Tazobactam Sod (Zosyn 3.375 Gm Premix) 50 ml @ 100 mls/hr Q6H IV 07/30/16 13:00 08/02/16 06:34 IV Flush (NS Flush) 2 ml BID IVF 07/30/16 21:00 08/02/16 08:59 Enoxaparin Sodium (Lovenox Inj) 40 mg Q24H SQ 07/31/16 15:00 08/09/16 15:01 08/01/16 14:08 Multivitamins/ Minerals Therapeutic (Theragran M Tab) 1 tab BID PO 07/31/16 21:00 09/29/16 20:59 08/02/16 08:59 Docusate Sodium (Colace) 100 mg BID PO 07/31/16 21:00 08/02/16 08:59 Megestrol Acetate (Megace) 40 mg QID PO 07/31/16 13:00 08/02/16 09:00 Lorazepam (Ativan) 0.5 mg Q4HR PRN PO ANXIETY 07/31/16 16:30 08/01/16 21:00 Metoprolol Tartrate (Lopressor) 50 mg Q12HR PO 08/01/16 21:00 08/02/16 08:59 Potassium Chloride 40 meq 40 meq Q4H PO 08/02/16 11:00 08/02/16 15:01 08/02/16 10:55 Levofloxacin/ Dextrose 150 ml @ 100 mls/hr Q24H IV 08/02/16 11:00 08/02/16 10:56 Vancomycin HCl/ Sodium Chloride (Vancomycin Inj/ NS 250 ml Inj) 250 ml @ 250 mls/hr Q12H IV 08/02/16 12:00 08/02/16 11:20 Objective Remarks GENERAL: Weak female, lying in bed in nad. On 3L O2 via NC SKIN: Warm and dry. HEAD: Normocephalic. EYES: No injection or drainage. NECK: Supple, trachea midline. CARDIOVASCULAR: +S1/S2 RESPIRATORY: + rhonchi, all lung spence GASTROINTESTINAL: Abdomen soft, non-tender, nondistended. EXTREMITIES: No cyanosis. NEUROLOGICAL: awake and alert, able to move extremities. facial movements symmetric. confused intermittently throughout exam. she sometimes answers questions appropriately, and other times seems confused. Assessment/Plan Problem List: (1) Metastatic lung carcinoma Status: Acute Plan: 08/02/16: patient declining neurologically. will order swallow eval. d/w Maria T, palliative care. patient may not make it to the start of XRT. Patient states she still wants to try and pursue radiation. Also discussed the swallow evaluation, and how it may not be safe for her to eat any longer. 08/01/16: patient seen by Dr. Tran last night, plans for XRT to femur prior to brain XRT. simulation today. --Workup (done at [facility]) CT C/A/P showed left upper lobe lung mass with left SC LAD + liver lesion CT brain showed 2 masses pathology of supraclav. mass showed adenocarcinoma, NSCLC --XRT to start Sunday --CT chest ([facility] [place])--showed multifocal air space consolidation +small left pleural effusion and small pericardial effusion. (2) Femoral shaft fracture Status: Acute Plan: --s/p ORIF with intramedullary nail placement on 07/30/16. --awaiting pathology from femur (3) DVT, bilateral lower limbs Status: Acute Plan: --s/p IVC filter placement (4) Hypercalcemia of malignancy Status: Acute Plan: --given Aredia on 07/29/16 Assessment 66y/o with recently diagnosed metastatic NSCLC with brain mets, admitted with pathologic fracture to right femur. h/o COPD, Chronic back pain. DVT + IVC filter. Attending Statement confuse. Palliative care note reviewed and appreciated. Pt has elected for hospice. D/C to hospice care center for best supportive care. Pt is declining. Prognosis is very poor. May in 1-2 weeks. Problem Qualifiers (1) Femoral shaft fracture: Qualified Code: S72.391A - Other closed fracture of shaft of right femur, initial encounter Mercedez Benitez Aug 02, 2016 11:42 Kendal Zhu MD Aug 02, 2016 17:55
[2016-08-02] MEDS: POTASSIUM CL 40 MEQ/30 ML LIQ UDC PO SCH ×2 (12:01→15:44)
--- NOTE | 2016-08-02 13:36 | HHI.PR ---
Subjective Remarks Follow up on 66 years old female came with femur fracture pathologic due to metastatic lung cancer status post tear by orthopedic, however patient was found to have pneumonia pulmonology consulted Today I was called by the nurse patient feeling significant short of breath "I need somebody to help any " She is afebrile, she is on 4 L nasal oxygen, she has cough but looks with weak respiratory effort I reviewed chest x-ray from yesterday which showed worsening airspace disease and pleural effusion, patient was given 1 dose of Lasix iv yesterday with good urine output Today WBC increased to 17,000 however she is on Solu-Medrol, but with the worsening chest x-ray, I upgraded her antibiotic to Zosyn but and Vanco, sent for sputum culture, urine antibody for Legionella and pneumococcus, will give her another dose of Lasix iv she has significant Rales. Will insert Schneider to assess urine output D/W Dr. Garcia the turnaround planner who will graciously see the patient today Objective Vitals Vital Signs Date Time Temp Pulse Resp B/P Pulse Ox O2 Delivery O2 Flow Rate FiO2 08/02/16 12:00 86 08/02/16 12:00 99.1 86 26 116/61 96 08/02/16 10:00 90 08/02/16 08:08 94 Nasal Cannula 3.00 08/02/16 08:00 96 08/02/16 08:00 98.0 96 23 112/61 98 08/02/16 07:00 95 Nasal Cannula 4.00 Humidified 08/02/16 06:00 110 08/02/16 04:00 97.6 93 20 122/86 94 08/02/16 04:00 93 08/02/16 02:00 96 08/02/16 00:00 88 08/02/16 00:00 98.4 88 21 133/70 93 08/01/16 22:00 89 08/01/16 20:35 96 Nasal Cannula 3.00 08/01/16 20:00 97 08/01/16 20:00 98.2 97 22 141/76 93 08/01/16 19:00 93 Nasal Cannula 4.00 Humidified 08/01/16 18:00 110 08/01/16 16:00 98.1 100 23 136/69 92 08/01/16 16:00 100 08/01/16 14:00 95 08/01/16 13:45 99.0 93 28 140/71 93 I/O 08/01/16 08/01/16 08/01/16 08/02/16 08/02/16 08/02/16 07:00 15:00 23:00 07:00 15:00 23:00 Intake Total 457 ml 148 ml 453 ml 270 ml Balance 457 ml 148 ml 453 ml 270 ml Intake Oral 120 ml 60 ml 240 ml 120 ml IV Total 337 ml 88 ml 213 ml 150 ml # Voids 3 5 2 5 # Bowel Movements 0 0 1 1 Result Diagram: 08/02/16 0510 08/02/16 0510 Imaging Last Impressions Chest X-Ray 08/01/16 0000 Signed Impressions: Service Date/Time: Monday, August 01, 2016 19:14 - CONCLUSION: 1. Increase in left basilar airspace disease since July 29 with probable left effusion. Ckllsy-g-Hged in superior vena cava. Inferior vena cava filter. Compression deformities in the thoracic spine. Rangel Haji MD Femur X-Ray 07/30/16 0000 Signed Impressions: Service Date/Time: Saturday, July 30, 2016 14:37 - CONCLUSION: 1. Osbaldo fixation proximal right femur fracture. Rangel Haji MD Lung Scan- Nuclear Medicine 07/29/16 0000 Signed Impressions: Service Date/Time: Friday, July 29, 2016 19:40 - CONCLUSION: 1. Low probability for pulmonary bolus. Rangel Haji MD Hip X-Ray 07/29/16 0000 Signed Impressions: Service Date/Time: Friday, July 29, 2016 15:24 - CONCLUSION: Fracture proximal shaft right femur with apex lateral angulation. Questionable pathologic fracture. Bone scan could be performed for further evaluation. Rangel Haji MD Chest CT 07/29/16 0000 Signed Impressions: Service Date/Time: Friday, July 29, 2016 17:34 - CONCLUSION: 1. Multifocal airspace consolidation the lungs most notable in the left lower lobe and anterior segment left upper lobe loss and subsegmental airspace disease in the other lobes of the lung. There is an associated small left effusion and small pericardial effusion. Findings are most characteristic of pneumonia or aspiration. There is also mild emphysema and mild mediastinal adenopathy. Right Dybxup-e-Wkam tip in superior vena cava. 2. Moderate compression deformity in the lower thoracic spine, probably old. Rangel Haji MD Objective Remarks GENERAL: Well-developed cachectic. In no distress. Hard of hearing and hoarse voice. SKIN: Warm and dry. No lesions noted. HEENT: Normocephalic. Pupils equal and round. Mucous membranes pink and moist. JVD noted. CARDIOVASCULAR: Tachycardic rate and regular rhythm. No murmur appreciated. RESPIRATORY: Positive scattered Rales bilaterally GASTROINTESTINAL: Abdomen soft, non-tender, nondistended. Bowel sounds x4. MUSCULOSKELETAL: No edema in bilateral extremity, positive pedal pulses NEUROLOGICAL: Awake and alert,. No focal neurological deficits. Moves upper and lower extremities spontaneously. Normal speech. PSYCHIATRIC: Appropriate mood and affect; insight and judgment fair to normal. A/P Assessment and Plan 07/30/16: Discussion with orthopedic in the morning, awaiting, pulmonary consult for clearance 07/31/16: Status post surgery, doing well, today she had hypertension with increased heart rate will give clonidine when necessary and at the rest are, creatinine improving and trending down 1.77-1.05 08/01/16: Heart rate is better but still around 100, pressure stable, will monitor and will increase Lopressor to 50 mg twice a day, continuing effort for discharge to rehabilitation, will check BMP and BNP in a.m., will check stat chest x-ray rule out a moderate congestion, discussed with the nurse, will give iv Lasix 1 dose of chest x-ray showed pulmonary congestion a/p: 66-year-old female with a past medical history of recently diagnosed lung cancer who presented with acute right leg pain Right upper mid shaft femur fracture: Hip and femur x-rays personally reviewed, mostly pathologic. Orthopedics was consulted . pt wants to proceed with surgery , Higher risk for surgery with respiratory status as below, awaiting pulmonary clearance prior to surgery. Pain control with oral and intravenous narcotics as needed. Tachycardia with hypotension on 08/01: Improved after increase Lasix to 50 mg twice a day Acute respiratory failure due to pneumonia : With history of cancer and long bone fracture she is at high risk for embolic however that was ruled out with a low probability VQ scan per oncology recommendation, Oxygen saturation 90s on 4 L O2. ABG reviewed. Chest x-ray shows left basilar airspace disease and small left effusion. Chest CT without contrast reviewed as above, patient was on azithromycin and ceftriaxone, I change her Zosyn and Levaquin and Vanco due to worsening airspace disease on chest x-ray and increased leukocytosis as well as clinical symptoms. Continue Scheduled as needed nebs. Supplemental oxygen as needed.Solu-Medrol iv pulmonary on board D/W Dr. Garcia he will see the patient today 08/02 Poor prognosis patient may develop to worsening respiratory failure however she is a DNR status Acute kidney injury possibly on underlying CKD, : Initially Creatinine 1.77, possibly related to the recent CTA of the chest done on May the hospital, no previous labs for comparison. Status post IVF and follow-up BMP. Now patient has been given 2 doses of Lasix iv 40 mg due to pleural effusion and increase Rales Lung cancer: Appreciate oncologist, Dr. Zhu Consultation, and for palliative radiation and chemotherapy once addressed orthopedic issue Disposition: close monitoring in ICU for now. Discharge Planning To rehabilitation possibly name and if stable Juliana Mccarty MD Aug 02, 2016 13:36
[2016-08-02] MEDS: ENOXAPARIN SODIUM 40 MG/0.4 ML SYRINGE SQ SCH (13:40)
[2016-08-02] MEDS ORDERED: FUROSEMIDE 40 MG/4 ML VIAL IV PUSH ONE (13:45)
--- NOTE | 2016-08-02 14:54 | HHI.HCPN ---
Reason for visit a. To assist with evaluation and management of symptoms including: cough, dyspnea, anxiety. b. To assist medical decision maker(s) with: better understanding of current medical conditions; weighing benefits/burdens of medical treatment options; making medical treatment decisions. . Subjective/Interval History Patient seen and examined in ICU. Discussed with Mercedez Benitez and nursing staff. Patient has 4 friends at bedside. Patient appears more confused. Swallow evaluation recommended pudding thick liquids. She appears to be aspirating. Her lungs with diffuse rhonchi throughout. She denies pain. Intermittent dyspnea and anxiety, declines Lorazepam during my visit. She remains on oxygen via NC. Tmax 99.1. Vital signs stable. Has had 2 bowel movements. Reviewed my concern for decline and the possibility she may not be able to get treatment given worsening respiratory status, she does not seem to have insight during this visit. . Family/friend interactions I called to speak with her ananthon ([facility]) Joce Qasim via telephone to provide medical update. I explained my concern he may have to make some difficult decisions in the coming days, he verbalizes understanding. I explained I am not sure her condition won't worsen before she can get treatment. He understands. I will provide medical update again 08/03/16, he appreciates call. He is prepared to transition to comfort should her condition decline further. Right now pt has some intermittent capacity and she still wants to try treatment. . Advance Directives Advance Directive Specifics Significant change in goals: NO CODE. Hopes for radiation treatment to brain and femur. Joce Lamb aware of declining status. Objective Vital Signs Date Time Temp Pulse Resp B/P Pulse Ox O2 Delivery O2 Flow Rate FiO2 08/02/16 12:00 86 08/02/16 12:00 99.1 86 26 116/61 96 08/02/16 10:00 90 08/02/16 08:08 94 Nasal Cannula 3.00 08/02/16 08:00 96 08/02/16 08:00 98.0 96 23 112/61 98 08/02/16 07:00 95 Nasal Cannula 4.00 Humidified 08/02/16 06:00 110 08/02/16 04:00 97.6 93 20 122/86 94 08/02/16 04:00 93 08/02/16 02:00 96 08/02/16 00:00 88 08/02/16 00:00 98.4 88 21 133/70 93 08/01/16 22:00 89 08/01/16 20:35 96 Nasal Cannula 3.00 08/01/16 20:00 97 08/01/16 20:00 98.2 97 22 141/76 93 08/01/16 19:00 93 Nasal Cannula 4.00 Humidified 08/01/16 18:00 110 08/01/16 16:00 98.1 100 23 136/69 92 08/01/16 16:00 100 Intake & Output 08/02/16 08/02/16 07:00 19:00 Intake Total 723 ml Balance 723 ml Intake Oral 360 ml IV Total 363 ml # Voids 5 # Bowel Movements 1 Physical Exam CONSTITUTIONAL/GENERAL: This is a thin patient who appears older than her actual age, TUBES/LINES/DRAINS: Oxygen via NC, PIV. SKIN: No jaundice, rashes, or lesions. Ecchymoses on upper extremities. Dressing right hip, not visualized sitting in stretcher chair. Skin temperature appropriate. Not diaphoretic. ENT: Hearing grossly normal. Nose without bleeding or purulent drainage. Throat without visible erythema, exudates, masses, or lesions. Voice weak and soft. CARDIOVASCULAR: Regular rate and rhythm without murmurs, gallops, or rubs. No JVD. Peripheral pulses symmetric. RESPIRATORY/CHEST: Symmetric, labored respirations at rest. Breath sounds diffuse rhonchi. GASTROINTESTINAL: Abdomen soft, non-tender, nondistended. No guarding. Bowel sounds present. GENITOURINARY: Without palpable bladder distension. Schneider catheter in place. MUSCULOSKELETAL: Extremities with trace edema right. No mottling or clubbing. NEUROLOGICAL: Awake and alert. Motor and sensory grossly within normal limits. Follows commands. Cognitively sharp. Moves all extremities. PSYCHIATRIC: Smiling, makes intermittent jokes. Self reports anxiety with dyspnea or when laying flat. . Diagnostic Tests Laboratory Laboratory Tests Test 08/01/16 08/02/16 08/02/16 04:26 05:10 10:50 White Blood Count 8.8 TH/MM3 17.5 TH/MM3 (4.0-11.0) (4.0-11.0) Red Blood Count 2.98 MIL/MM3 3.50 MIL/MM3 (4.00-5.30) (4.00-5.30) Hemoglobin 9.1 GM/DL 10.5 GM/DL (11.6-15.3) (11.6-15.3) Hematocrit 27.8 % 32.8 % (35.0-46.0) (35.0-46.0) Mean Corpuscular Volume 93.4 FL 93.7 FL (80.0-100.0) (80.0-100.0) Mean Corpuscular Hemoglobin 30.7 PG 30.2 PG (27.0-34.0) (27.0-34.0) Mean Corpuscular Hemoglobin 32.9 % 32.2 % Concent (32.0-36.0) (32.0-36.0) Red Cell Distribution Width 17.2 % 17.1 % (11.6-17.2) (11.6-17.2) Platelet Count 253 TH/MM3 349 TH/MM3 (150-450) (150-450) Mean Platelet Volume 9.6 FL 10.0 FL (7.0-11.0) (7.0-11.0) Sodium Level 149 MEQ/L 147 MEQ/L (136-145) (136-145) Potassium Level 4.0 MEQ/L 3.1 MEQ/L (3.5-5.1) (3.5-5.1) Chloride Level 114 MEQ/L 106 MEQ/L (98-107) (98-107) Carbon Dioxide Level 25.8 MEQ/L 32.1 MEQ/L (21.0-32.0) (21.0-32.0) Anion Gap 9 MEQ/L (5-15) 9 MEQ/L (5-15) Blood Urea Nitrogen 20 MG/DL (7-18) 17 MG/DL (7-18) Creatinine 0.73 MG/DL 0.72 MG/DL (0.50-1.00) (0.50-1.00) Estimat Glomerular Filtration 80 ML/MIN (>89) 82 ML/MIN (>89) Rate Random Glucose 112 MG/DL 121 MG/DL (74-106) (74-106) Calcium Level 8.2 MG/DL 8.0 MG/DL (8.5-10.1) (8.5-10.1) B-Type Natriuretic Peptide 451 PG/ML 546 PG/ML (0-100) (0-100) Urine Color YELLOW (YELLW/STRAW) Urine Turbidity CLEAR (CLEAR) Urine pH 5.5 (5.0-8.5) Urine Specific [place] 1.025 (1.002-1.035) Urine Protein TRACE mg/dL (NEG-TRACE) Urine Glucose (UA) TRACE mg/dL (NEG) Urine Ketones 10 mg/dL (NEG) Urine Occult Blood SMALL (NEG) Urine Nitrite NEG (NEG) Urine Bilirubin NEG (NEG) Urine Urobilinogen LESS THAN 2.0 MG/DL (LESS THAN 2.0) Urine Leukocyte Esterase TRACE (NEG) Urine RBC 8 /hpf (0-3) Urine WBC 3 /hpf (0-5) Urine Squamous Epithelial <1 /hpf (0-5) Cells Urine Bacteria RARE /hpf (NONE) Urine Mucus FEW /lpf (OCC) Urine Yeast (Budding) RARE (NONE) Microscopic Urinalysis Comment CULT NOT INDICATED Result Diagram: 08/02/16 0510 08/02/16 05 Microbiology Microbiology Date/Time Procedure Status Source Growth 07/29/16 16:35 Aerobic Blood Culture - Preliminary Resulted Blood Peripheral NO GROWTH IN 4 DAYS 07/29/16 16:35 Anaerobic Blood Culture - Preliminary Resulted Blood Peripheral NO GROWTH IN 4 DAYS Imaging Last Impressions Chest X-Ray 08/01/16 0000 Signed Impressions: Service Date/Time: Monday, August 01, 2016 19:14 - CONCLUSION: 1. Increase in left basilar airspace disease since July 29 with probable left effusion. Cnacja-u-Bclv in superior vena cava. Inferior vena cava filter. Compression deformities in the thoracic spine. Rangel Haji MD Femur X-Ray 07/30/16 0000 Signed Impressions: Service Date/Time: Saturday, July 30, 2016 14:37 - CONCLUSION: 1. Osbaldo fixation proximal right femur fracture. Rangel Haji MD Lung Scan- Nuclear Medicine 07/29/16 0000 Signed Impressions: Service Date/Time: Friday, July 29, 2016 19:40 - CONCLUSION: 1. Low probability for pulmonary bolus. Rangel Haji MD Hip X-Ray 07/29/16 0000 Signed Impressions: Service Date/Time: Friday, July 29, 2016 15:24 - CONCLUSION: Fracture proximal shaft right femur with apex lateral angulation. Questionable pathologic fracture. Bone scan could be performed for further evaluation. Rangel Haji MD Chest CT 07/29/16 0000 Signed Impressions: Service Date/Time: Friday, July 29, 2016 17:34 - CONCLUSION: 1. Multifocal airspace consolidation the lungs most notable in the left lower lobe and anterior segment left upper lobe loss and subsegmental airspace disease in the other lobes of the lung. There is an associated small left effusion and small pericardial effusion. Findings are most characteristic of pneumonia or aspiration. There is also mild emphysema and mild mediastinal adenopathy. Right Iuuxfj-r-Ymlc tip in superior vena cava. 2. Moderate compression deformity in the lower thoracic spine, probably old. Rangel Haji MD Assessment and Plan Disease Oriented Problem List: (1) Femoral shaft fracture (2) Hypercalcemia of malignancy (3) DVT, bilateral lower limbs (4) Metastatic lung carcinoma Symptom Scale: (1) Dyspnea 0-10 Scale: Unable to quantify (2) Cough 0-10 Scale: Unable to quantify (3) Anxiety 0-10 Scale: Unable to quantify Comment: increased with dyspnea. (4) Constipation 0-10 Scale: Unable to quantify Comment: LBM prior to admission. Pertinent Non-Medical Issues Psychosocial: Single. Supported by her friends, cousins and 2 stepsons (who live out of town). Spiritual: None. Legal: No written advanced directives. She is consider who she would want to speak for her, willing to implement HCS after she can talk to those she is considering. Ethical issues impacting care: No known concerns at this time. . Important Contacts * adonis Treviño/HCS: [phone] * Manny Tripp, step-son: [phone] * Ashley Cullen, friend [phone] * Cecelia [place]: [phone] . Prognosis Overall prognosis poor given poor functional and nutritional status, advanced disease mets lung to liver, adenopathy, brain and bone. . Code Status: No Code Plan * Living Will and Designation of Health Care surrogate which names her significant other (now ) as primary HCS and Joce lamb is alternate HCS. She wishes to keep Joce as her health care surrogate should she lose capacity. Copy on chart, sent to HIM to be scanned into EMR. * NO CODE per pt wishes. [place] Do Not Resuscitate Order signed by patient, original on chart, copy to stepsons and sent to HIM to be scanned into EMR. * 08/02/16 - Declining status. I called to speak with her stepson ([facility]) Joce Tripp via telephone to provide medical update. I explained my concern he may have to make some difficult decisions in the coming days, he verbalizes understanding. I explained I am not sure her condition won't worsen before she can get treatment. He understands. I will provide medical update again 08/03/16, he appreciates call. He is prepared to transition to comfort should her condition decline further. Right now pt has some intermittent capacity and she still wants to try treatment. * SYMPTOMS: Cough: secondary to COPD and lung cancer. Would consider Tessalon Linda. Constipation:Has bowel protocol in place. Will monitor. Encouraged PRN med use. Dyspnea: secondary to pneumonia, lung cancer and COPD. Has Oxygen and PRN Morphine. Anxiety: Added Lorazepam 0.5mg PO every 4 hours PRN anxiety. Will likely benefit from pre-meds (lorazepam) prior to XRT due to anxiety and dyspnea when laying flat. Dr. Tran aware. * Palliative care will continue to follow to assist with symptom management and further clarifications of treatment goals. . Attestation To help prompt me to consider important information that might be impacting today's encounter and assessment, information from prior notes written by myself or my colleagues may have been "brought forward" into today's note. My signature on this note, however, is an attestation that I personally performed the exam, history, and/or decision-making noted today, and, unless otherwise indicated, the interactions with patient, family, and staff as well as the review of records all occurred today. I also attest that the listed assessment and stated plan reflect my best clinical judgment today based on the combination of historical information, prior notes, and today's exam/ interactions. When time spent is documented, it refers only to time spent today by the signer, or if indicated, combined time spent today by collaborating physician/nurse practitioner. AMRITA RAVI Aug 02, 2016 14:54
--- NOTE | 2016-08-02 15:31 | PD.ORT.PN ---
Subjective Post Op Day #: 3 Subjective Remarks The patient is resting in bed with mild labored breathing. Patient notes minimal right LE pain. Primary RN states patient has decided to go on Hospice. Hospice nurse to see patient later tonight. Objective Vitals Vital Signs Date Time Temp Pulse Resp B/P Pulse Ox O2 Delivery O2 Flow Rate FiO2 08/02/16 12:00 86 08/02/16 12:00 99.1 86 26 116/61 96 08/02/16 10:00 90 08/02/16 08:08 94 Nasal Cannula 3.00 08/02/16 08:00 96 08/02/16 08:00 98.0 96 23 112/61 98 08/02/16 07:00 95 Nasal Cannula 4.00 Humidified 08/02/16 06:00 110 08/02/16 04:00 97.6 93 20 122/86 94 08/02/16 04:00 93 08/02/16 02:00 96 08/02/16 00:00 88 08/02/16 00:00 98.4 88 21 133/70 93 08/01/16 22:00 89 08/01/16 20:35 96 Nasal Cannula 3.00 08/01/16 20:00 97 08/01/16 20:00 98.2 97 22 141/76 93 08/01/16 19:00 93 Nasal Cannula 4.00 Humidified 08/01/16 18:00 110 08/01/16 16:00 98.1 100 23 136/69 92 08/01/16 16:00 100 I/O 08/01/16 08/01/16 08/01/16 08/02/16 08/02/16 08/02/16 07:00 15:00 23:00 07:00 15:00 23:00 Intake Total 457 ml 148 ml 453 ml 270 ml 797 ml Balance 457 ml 148 ml 453 ml 270 ml 797 ml Intake Oral 120 ml 60 ml 240 ml 120 ml 120 ml IV Total 337 ml 88 ml 213 ml 150 ml 677 ml # Voids 3 5 2 5 4 # Bowel Movements 0 0 1 1 0 Result Diagram: 08/02/1650908/02/16509 Procedures Right femur pathologic fracture stabilization with intramedullary nail Objective Remarks O2NC, coughing The patient's dressings are C/D/I. EHL/TA/G are intact. No calf pain or tenderness. Mild swelling to the right hip. + SILT. Assessment & Plan Ortho Post Op Day #: 3 Problem List: Assessment and Plan POD #3: Right femur pathologic fracture stabilization with intramedullary nail 1. NWB RLE 2. Lovenox for DVT prophylaxis per medical. Patient has history of DVT with IVC filter 3. Ice to the right thigh PRN 4. Patient will likely require radiation to the right femur once incisions are healed 5. We will continue to follow the pathology report from intramedulary reamings. 6. Patient is planning to go on hospice today for her cancer. Олег Treadwell Aug 02, 2016 15:31
--- NOTE | 2016-08-02 15:41 | HHI.HCPN ---
Call from nurse to report patient is requesting hospice services and transition to comfort measures. He has notified Joce lamb ([facility]) who agrees with plan of care. I confirmed he agrees via telephone. Went to bedside to speak with patient she confirms she wants hospice. She lives in [place] and would liek to go to [facility] in [place] if possible for management of dyspnea, cough, congestion. I suspect she will decline rapidly. Notified Dr. Tran and Mercedez Benitez. Consult placed for hospice, will plan for DC to [facility] when arrangements made. . AMRITA RAVI Aug 02, 2016 15:41
--- NOTE | 2016-08-02 16:50 | HHI.PR ---
Subjective Remarks 66 YOWF with NSCLC, pathological right femur fracture Had Intrameddilary nail fixation Feels much better denies Pain Mild congestion in chest but denies sob Has worsening sob CXR Pl effusion Pt refused ABG Offered Thoracentesis, pt declined Objective Vital Signs Vital Signs Date Time Temp Pulse Resp B/P Pulse Ox O2 Delivery O2 Flow Rate FiO2 08/02/16 14:00 101 08/02/16 12:00 86 08/02/16 12:00 99.1 86 26 116/61 96 08/02/16 10:00 90 08/02/16 08:08 94 Nasal Cannula 3.00 08/02/16 08:00 96 08/02/16 08:00 98.0 96 23 112/61 98 08/02/16 07:00 95 Nasal Cannula 4.00 Humidified 08/02/16 06:00 110 08/02/16 04:00 97.6 93 20 122/86 94 08/02/16 04:00 93 08/02/16 02:00 96 08/02/16 00:00 88 08/02/16 00:00 98.4 88 21 133/70 93 08/01/16 22:00 89 08/01/16 20:35 96 Nasal Cannula 3.00 08/01/16 20:00 97 08/01/16 20:00 98.2 97 22 141/76 93 08/01/16 19:00 93 Nasal Cannula 4.00 Humidified 08/01/16 18:00 110 I/O 08/01/16 08/01/16 08/01/16 08/02/16 08/02/16 08/02/16 07:00 15:00 23:00 07:00 15:00 23:00 Intake Total 457 ml 148 ml 453 ml 270 ml 797 ml Balance 457 ml 148 ml 453 ml 270 ml 797 ml Intake Oral 120 ml 60 ml 240 ml 120 ml 120 ml IV Total 337 ml 88 ml 213 ml 150 ml 677 ml # Voids 3 5 2 5 4 # Bowel Movements 0 0 1 1 0 Result Diagram: 08/02/16 0510 08/02/16 0510 Objective Remarks GENERAL: MBMN WF, NAD SKIN: Warm and dry. HEAD: Normocephalic. EYES: No scleral icterus. No injection or drainage. NECK: Supple, trachea midline. No JVD or lymphadenopathy. CARDIOVASCULAR: Regular rate and rhythm without murmurs, gallops, or rubs. RESPIRATORY: Breath sounds equal bilaterally. No accessory muscle use. GASTROINTESTINAL: Abdomen soft, non-tender, nondistended. MUSCULOSKELETAL: No cyanosis, or edema. BACK: Nontender without obvious deformity. No CVA tenderness. A/P Assessment and Plan COPD NSCLC Pathological Fracture right Femur Pleural effusion PLAN: Aerosol nebs Supplement 02 cont Abx IV Solumedrol Pt refuses work up and treatment Does't want TC Diurease Palliative care consulted. Collin Garcia MD Aug 02, 2016 16:50
[2016-08-02] MEDS: cefTRIAXone INJ 1,000 MG in SODIUM CHLORIDE 0.9% INJ 100 ML IV SCH (20:00)
[2016-08-02] MEDS ORDERED: methylPREDNISolone SOD SUCC 40 MG/1 ML VIAL IV PUSH SCH (21:00)
--- NOTE | 2016-09-08 19:26 | HHI.DS ---
Discharge Summary Admission Date Jul 29, 2016 at 17:01 Discharge Date: Aug 02, 2016 Admitting Diagnosis hypoxia, femur fracture (1) Femoral shaft fracture ICD Code: S72.309A (2) Hypercalcemia of malignancy ICD Code: E83.52 (3) Metastatic lung carcinoma ICD Code: C78.00 (4) Dyspnea ICD Code: R06.00 Procedures See below Brief History - From Admission 66-year-old female with a past medical history of recently diagnosed lung cancer who presented with acute right leg pain today. The patient is seen with her friend/caregiver's at bedside. The patient is very hard of hearing and extremely hoarse, cannot speak much to give a lot of history. She is oriented to person, states it is June 2016. Reportedly her friends were helping her get back in bed today, she turned, heard a pop, and had immediate severe pain in her right thigh with inability to bear weight. Orthopedics was consulted from the ED for right femur fracture. She was recently diagnosed with bronchitis 2 days ago at an ED in the [place]. She has been having cough with productive yellow sputum. She is prescribed Levaquin and steroid taper pack. She denies any chest pain or shortness of breath at this time. She has been having some dizziness, lightheadedness, nausea, vomiting. She is recently diagnosed with lung cancer. She is seen radiation oncology, Dr. Tran, planning to start on radiation on Sunday. She is also planning to see her medical oncologist for the first time, Dr. Zhu, on Sunday. PE at Discharge GENERAL: Well-developed cachectic. In no distress. Hard of hearing and hoarse voice. SKIN: Warm and dry. No lesions noted. HEENT: Normocephalic. Pupils equal and round. Mucous membranes pink and moist. JVD noted. CARDIOVASCULAR: Tachycardic rate and regular rhythm. No murmur appreciated. RESPIRATORY: Positive scattered Rales bilaterally GASTROINTESTINAL: Abdomen soft, non-tender, nondistended. Bowel sounds x4. MUSCULOSKELETAL: No edema in bilateral extremity, positive pedal pulses NEUROLOGICAL: Awake and alert,. No focal neurological deficits. Moves upper and lower extremities spontaneously. Normal speech. PSYCHIATRIC: Appropriate mood and affect; insight and judgment fair to normal. Hospital Course 66-year-old female with a past medical history of recently diagnosed lung cancer who presented with acute right leg pain Right upper mid shaft femur fracture: Hip and femur x-rays personally reviewed, mostly pathologic. Orthopedics was consulted . pt wants to proceed with surgery , Higher risk for surgery with respiratory status as below, awaiting pulmonary clearance prior to surgery. Pain control with oral and intravenous narcotics as needed. Tachycardia with hypotension on 08/01: Improved after increase Lasix to 50 mg twice a day Acute respiratory failure due to pneumonia : With history of cancer and long bone fracture she is at high risk for embolic however that was ruled out with a low probability VQ scan per oncology recommendation, Oxygen saturation 90s on 4 L O2. ABG reviewed. Chest x-ray shows left basilar airspace disease and small left effusion. Chest CT without contrast reviewed as above, patient was on azithromycin and ceftriaxone, I change her Zosyn and Levaquin and Vanco due to worsening airspace disease on chest x-ray and increased leukocytosis as well as clinical symptoms. Continue Scheduled as needed nebs. Supplemental oxygen as needed.Solu-Medrol iv pulmonary on board D/W Dr. Garcia he see the patient today 08/02 Poor prognosis patient may develop to worsening respiratory failure however she is a DNR status Acute kidney injury possibly on underlying CKD, : Initially Creatinine 1.77, possibly related to the recent CTA of the chest done on May the hospital, no previous labs for comparison. Status post IVF and follow-up BMP. Now patient has been given 2 doses of Lasix iv 40 mg due to pleural effusion and increase Rales Lung cancer: Appreciate oncologist, Dr. Zhu Consultation, and for palliative radiation and chemotherapy once addressed orthopedic issue On 07/30/16: Discussion with orthopedic in the morning, awaiting, pulmonary consult for clearance On 07/31/16: Status post surgery, doing well, today she had hypertension with increased heart rate give clonidine when necessary and at the rest are, creatinine improving and trending down 1.77-1.05 On 08/01/16: Heart rate is better but still around 100, pressure stable, increase Lopressor to 50 mg twice a day, continuing effort for discharge to rehabilitation, check BMP and BNP in a.m., check stat chest x-ray rule out a moderate congestion, discussed with the nurse, give iv Lasix 1 dose of chest x- ray showed pulmonary congestion Later on family decided on going with comfort measure a discuss with palliative care, skin change to DNR, hospice insulted patient was discharged to hospice facility Pt Condition on Discharge: Deteriorating Discharge Disposition: Hospice/Med Facility Discharge Time: <= 30 minutes Discharge Instructions DIET: Follow Instructions for: As Tolerated, No Restrictions Activities you can perform: Continue Bedrest Juliana Mccarty MD Sep 08, 2016 19:26
== END 2016-08-02 20:45 | disposition hospice, inpatient (51) | DRG 480 ==
LOC: NEPE 14:23 → NEDA 17:01 → NEDH 21:44 → N03B 22:33 → N03A 08-02 08:36
PROVIDERS: ADMIT Hospitalist; ATTEND Hospitalist
PROC: 0QS806Z Reposition Right Femoral Shaft with Intramedullary Internal Fixation Device, Open Approach (ICD-10-PCS; principal; 2016-07-30 14:00)
DX: M84.451A Pathological fracture, right femur, initial encounter for fracture (principal); J96.01 Acute respiratory failure with hypoxia; J69.0 Pneumonitis due to inhalation of food and vomit; N17.9 Acute kidney failure, unspecified; J90 Pleural effusion, not elsewhere classified; C79.31 Secondary malignant neoplasm of brain; C77.0 Secondary and unspecified malignant neoplasm of lymph nodes of head, face and neck; E83.52 Hypercalcemia; C79.51 Secondary malignant neoplasm of bone; I31.3 Pericardial effusion (noninflammatory); C34.12 Malignant neoplasm of upper lobe, left bronchus or lung; J44.9 Chronic obstructive pulmonary disease, unspecified; E78.00 Pure hypercholesterolemia, unspecified; H91.90 Unspecified hearing loss, unspecified ear; R49.0 Dysphonia; R00.0 Tachycardia, unspecified; R59.0 Localized enlarged lymph nodes; M54.9 Dorsalgia, unspecified; G89.29 Other chronic pain; K76.9 Liver disease, unspecified; F41.9 Anxiety disorder, unspecified; I95.9 Hypotension, unspecified; R13.10 Dysphagia, unspecified; K59.00 Constipation, unspecified; Z51.5 Encounter for palliative care; Z66 Do not resuscitate; Z87.891 Personal history of nicotine dependence; Z86.718 Personal history of other venous thrombosis and embolism
CPT/HCPCS: 36600; 71010; 71250; 73502; 73552; 76000; 77263; 77290; 77334; 78582; 80048; 80053; 81001; 82805; 83880; 84484; 85007; 85027; 85610; 85730; 86850; 86900; 86901; 87040; 87449; 87641; 88305; 88311; 88341; 88342; 93005; 94150; 94640; 94664; 96365; 96375; 99232; A9540; A9567; C1713; J0456; J0690; J0692; J0696; J1170; J1580; J1650; J1940; J1956; J2270; J2370; J2405; J2430; J2543; J2710; J2920; J2930; J3010; J3370; J7030; J7040; J7050; J7120; J7613